=== PATIENT | male | born 1950 | race Caucasian/White ===

== ENCOUNTER 2018-02-28 11:08 | Emergency (ER) | payer MEDICARE, BC, OTHER ==
[2018-02-28 11:39] VITALS: BP 133/73
--- NOTE | 2018-02-28 13:21 | UC ---
Dizzy HPI HPI Summary: The patient is a 58-year-old male that states that this morning when he stood up quickly he felt dizzy and weak. The dizziness lasted for minutes. Since then he has felt a little fatigued. His states that he was complaining of some abdominal pain but he denies. He has had several no nausea vomiting or diarrhea. He denies any chest pain or shortness of breath. Denies any palpitations. He does have atrial fibrillation. 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 [employer] - Onset/Duration: Sudden Onset, Lasting Minutes Severity Initially: Mild Severity Currently: None Pain Intensity: 0 Pain Scale Used: 0-10 Numeric Character: Lightheaded Aggravating Factor(s): Position Change Alleviating Factor(s): Other - spontaneusly resolved - Allergies/Home Medications Allergies/Adverse Reactions: Allergies Allergy/AdvReac Type Severity Reaction Status Date / Time morphine Allergy Difficulty Verified 02/28/18 11:40 Breathing Sulfa (Sulfonamide Allergy Hives Verified 02/28/18 11:40 Antibiotics) PMH/Surg Hx/FS Hx/Imm Hx Previously Healthy: No Endocrine History: Dyslipidemia Cardiovascular History: Cardiac Disease, Hypertension, Atrial Fibrillation Neurological History: CVA - Surgical History Surgical History: Yes Surgery Procedure, Year, and Place: T & A x 2 A CHILD,CATARACT - Family History Known Family History: Positive: Hypertension - Social History Alcohol Use: None Substance Use Type: None Smoking Status (MU): Former Smoker Type: Cigarettes Amount Used/How Often: 2-3 PPD X 36 YRS Length of Time of Smoking/Using Tobacco: Quit 2003 When Did the Patient Quit Smoking/Using Tobacco: 06/30/2003 Household Exposure Type: Cigarettes - Immunization History Most Recent Influenza Vaccination: Feb 2016 Most Recent Tetanus Shot: unknown Most Recent Pneumonia Vaccination: Feb 2015 Review of Systems Constitutional: Fatigue Skin: Negative Eyes: Negative ENT: Negative Respiratory: Negative Cardiovascular: Negative Gastrointestinal: Negative Genitourinary: Negative Motor: Negative Neurovascular: Negative Musculoskeletal: Negative Neurological: Negative Psychological: Negative Is Patient Immunocompromised?: No All Other Systems Reviewed And Are Negative: Yes Physical Exam Triage Information Reviewed: Yes Appearance: Well-Appearing, No Pain Distress, Well-Nourished Vital Signs: Initial Vital Signs Temp 97.8 F 02/28/18 11:34 Pulse 58 02/28/18 11:34 Resp 18 02/28/18 11:34 BP 133/73 02/28/18 11:34 Pulse Ox 97 02/28/18 11:34 Eyes: Positive: Conjunctiva Clear ENT: Positive: Hearing grossly normal. Negative: Pharyngeal erythema, Nasal congestion, Trismus, Muffled voice, Hoarse voice Neck: Positive: Supple Respiratory: Positive: Lungs clear, Normal breath sounds, No respiratory distress, No accessory muscle use Cardiovascular: Positive: No Murmur. Negative: RRR Abdomen Description: Positive: Nontender, No Organomegaly. Negative: CVA Tenderness (R), CVA Tenderness (L), Distended, Guarding, McBurney's Point Tenderness Musculoskeletal: Positive: ROM Intact, No Edema Neurological: Positive: Alert, Other: - non focal exam Psychological Exam: Normal Skin Exam: Normal Dizzy Course/Dx - Differential Dx/Diagnosis Provider Diagnoses: dizziness :transient of uncertain cause. fatigue Discharge - Sign-Out/Discharge Documenting (check all that apply): Patient Departure All imaging exams completed and their final reports reviewed: No Studies - Discharge Plan Condition: Stable Disposition: HOME Patient Education Materials: Fatigue (ED), Dizziness (ED) Referrals: Damon Mcdonnell MD [Primary Care Provider] - 3 Days Additional Instructions: blood work pending to ER for new or worsening symptoms see your MD early next week - Billing Disposition and Condition Condition: STABLE Disposition: Home
[2018-02-28 18:59] LABS: ABS Basophils 0.1 10^3/ul (0-0.2); ABS Eosinophils 0.3 10^3/ul (0-0.6); ABS Monocytes 0.9 10^3/ul (0-0.8); ABS Nucleated RBC 0 10^3/ul; Eosinophil % 4.1 % (0-6); Hematocrit 45 % (42-52); Hemoglobin 15.3 g/dl (14.0-18.0); Lymphocyte % 11.7 % (25-47); Mean Corpuscular HGB Conc 34 g/dl (31-36); Mean Corpuscular Hemoglobin 30 pg (27-31); Mean Corpuscular Volume 89 fL (80-94); Mean Platelet Volume 10.3 um3 (7.4-10.4); Nucleated Red Blood Cells % 0.1; Platelet Count 228 10^3/ul (150-450); Red Blood Count 5.11 10^6/ul (4.00-5.40); Red Cell Distribution Width 14 % (10.5-15); White Blood Count 8.2 10^3/ul (3.5-10.8)
[2018-02-28 19:16] LABS: EGFR Non-African American 68.5 (>60)
--- NOTE | 2018-03-01 09:15 | UC ---
- Progress Note Progress Note: Labs unremarkable. F/u with PCP as advised at visit. Discharge - Sign-Out/Discharge Documenting (check all that apply): Post-Discharge Follow Up All imaging exams completed and their final reports reviewed: No Studies - Discharge Plan Condition: Stable Disposition: HOME Patient Education Materials: Dizziness (ED), Fatigue (ED) Referrals: Damon Mcdonnell MD [Primary Care Provider] - 3 Days Additional Instructions: blood work pending to ER for new or worsening symptoms see your MD early next week - Billing Disposition and Condition Condition: STABLE Disposition: Home
== END 2018-02-28 13:48 | disposition home or self-care (01) ==
LOC: UCEAST 11:08
DX: R42 Dizziness and giddiness (principal); R53.83 Other fatigue; Z88.5 Allergy status to narcotic agent; Z88.2 Allergy status to sulfonamides; Z87.891 Personal history of nicotine dependence
CPT/HCPCS: 36415; 80053; 85025; 99211; G0463

== ENCOUNTER 2018-05-07 20:00 | Observation (INO) | payer MEDICARE, BC, OTHER ==
[2018-05-07 22:37] LABS: Hematocrit 48 % (42-52); Hemoglobin 15.8 g/dl (14.0-18.0); Mean Corpuscular HGB Conc 33 g/dl (31-36); Mean Corpuscular Hemoglobin 29 pg (27-31); Mean Corpuscular Volume 89 fL (80-94); Mean Platelet Volume 9.2 fL (7.4-10.4); Platelet Count 255 10^3/ul (150-450); Red Blood Count 5.37 10^6/ul (4.00-5.40); Red Cell Distribution Width 15 % (10.5-15); White Blood Count 19.3 10^3/ul (3.5-10.8)
[2018-05-07] MEDS ORDERED: Diltiazem DRIP* 100 MG/100 ML ADDV.BAG IVPB ONE (22:48)
[2018-05-07 22:49] LABS: INR 1.75 (0.77-1.02)
[2018-05-07] MEDS ORDERED: Diltiazem IV* 5 MG/ML 5 ML VIAL (for loading dose/IV Push) (25 MG) IV SLOW PU ONE ×2 (22:53→23:04)
[2018-05-07 22:54] LABS: EGFR Non-African American 67.8 (>60)
[2018-05-07 22:57] LABS: ABS Basophils 0 10^3/ul (0-0.2); ABS Eosinophils 0.1 10^3/ul (0-0.6); ABS Lymphocytes 1.1 10^3/ul (1.0-4.8); ABS Monocytes 1.8 10^3/ul (0-0.8); ABS Neutrophils 16.3 10^3/ul (1.5-7.7); ABS Nucleated RBC 0 10^3/ul; Eosinophil % 0.3 % (0-6); Lymphocyte % 5.7 % (25-47); Nucleated Red Blood Cells % 0
[2018-05-08] MEDS ORDERED: Diltiazem IV* 5 MG/ML 5 ML VIAL (for loading dose/IV Push) (25 MG) IV SLOW PU ONE (00:06)
[2018-05-08] MEDS ORDERED: Acetaminophen TAB* 325 MG PO ONE (00:25)
[2018-05-08 00:33] LABS: Urine Appearance Clear; Urine Blood Negative (Negative); Urine Color Yellow; Urine Ketones Negative (Negative); Urine Protein 1+(30 mg/dL) (Negative); Urine Red Blood Cell Trace(0-2/hpf) (Absent); Urine Specific Gravity 1.025 (1.010-1.030); Urine Urobilinogen Positive (Negative); Urine White Blood Cell Trace(0-5/hpf) (Absent)
[2018-05-08] MEDS ORDERED: Azithromycin IV(*) 250 MG in NS 0.9% 250 ML* 250 ML IVPB ONE (01:38)
[2018-05-08] MEDS ORDERED: cefTRIAXone(*) 1 GM in NS 0.9% 50 ML* 50 ML IVPB ONE (01:39)
[2018-05-08] MEDS ORDERED: Furosemide IV* 10 MG/ML VIAL (40 MG) IV ONE (01:41)
--- NOTE | 2018-05-08 01:44 | ED ---
Adult Trauma - HPI Summary HPI Summary: Patient complains of fall while trying to move the cabinet, lying on floor for 3 hours between cabinet in bed, pain in left elbow with subsequent weakness and left upper extremity. Reports incontinence 3 while lying on the ground. History of incontinence. Patient alert and oriented, complains only of left elbow pain, 6 out of 10. Denies fever, cough, sore throat, CP, SOB, N/V/D, abdominal pain, change in urine, change in BM. Medical history is CVA, A. fib, HTN, HDL. Patient on Xarelto. - History of Current Complaint Chief Complaint: EDWeakness Stated Complaint: WEAKNESS Time Seen by Provider: 05/07/18 22:02 Hx Obtained From: Patient Mechanism of Injury: Fall Loss of Consciousness: no loss of consciousness Onset/Duration: Started Hours Ago Onset of Pain: Hours Onset Severity: Moderate Current Severity: Moderate Pain Intensity: 8 Pain Scale Used: 0-10 Numeric Location: Extremities Character: Aching Aggravating Factor(s): Movement Alleviating Factor(s): Nothing Associated Signs & Symptoms: Positive: Numbness/Weakness - Additional Pertinent History Primary Care Physician: [id number] - Allergy/Home Medications Allergies/Adverse Reactions: Allergies Allergy/AdvReac Type Severity Reaction Status Date / Time morphine Allergy Difficulty Verified 02/28/18 11:40 Breathing Sulfa (Sulfonamide Allergy Hives Verified 02/28/18 11:40 Antibiotics) PMH/Surg Hx/FS Hx/Imm Hx Endocrine/Hematology History: Denies: Hx Diabetes, Hx Sickle Cell Disease, Hx Thyroid Disease Cardiovascular History: Reports: Hx Hypertension, Other Cardiovascular Problems/ Disorders - HYPERCHOLESTEROLEMIA Denies: Hx Pacemaker/ICD Respiratory History: Denies: Hx Asthma, Hx Chronic Obstructive Pulmonary Disease (COPD), Other Respiratory Problems/Disorders GI History: Reports: Hx Gastroesophageal Reflux Disease - ON MED Denies: Hx Ulcer History: Denies: Other Problems/Disorders Musculoskeletal History: Reports: Other Musculoskeletal History - carpal tunnel syndrom Sensory History: Reports: Hx Cataracts, Hx Contacts or Glasses - GLASSES, Hx Glaucoma, Hx Hearing Aid - OUT Opthamlomology History: Reports: Hx Cataracts, Hx Contacts or Glasses - GLASSES , Hx Glaucoma Neurological History: Reports: Hx Transient Ischemic Attacks (TIA) Psychiatric History: Reports: Hx Post Traumatic Stress Disorder Denies: Hx Panic Disorder - Surgical History Surgery Procedure, Year, and Place: T & A x 2 A CHILD,CATARACT Hx Anesthesia Reactions: No Infectious Disease History: No Infectious Disease History: Reports: Hx Tuberculosis - tests positive but neg Denies: Hx Clostridium Difficile, Hx Hepatitis, Hx Human Immunodeficiency Virus (HIV), Hx of Known/Suspected MRSA, Hx Shingles, Hx Known/Suspected VRE, Hx Known/Suspected VRSA, History Other Infectious Disease, Traveled Outside the [place] in Last 30 Days - Family History Known Family History: Positive: Hypertension - Social History Alcohol Use: None Hx Substance Use: No Substance Use Type: Reports: None Hx Tobacco Use: Yes Smoking Status (MU): Former Smoker Type: Cigarettes Amount Used/How Often: 2-3 PPD X 36 YRS Length of Time of Smoking/Using Tobacco: Quit 2003 Review of Systems Constitutional: Negative Eyes: Negative ENT: Negative Cardiovascular: Negative Respiratory: Negative Gastrointestinal: Negative Genitourinary: Negative Positive: Arthralgia Skin: Negative Positive: Weakness Psychological: Normal All Other Systems Reviewed And Are Negative: Yes Physical Exam - Summary Physical Exam Summary: Neuro exam normal. No ecchymosis, erythema, deformity, swelling, extra warmth, decreased range of motion noted to left elbow. Normal clinic office coordinator strength bilaterally. Alert and oriented. Physical exam unremarkable. Triage Information Reviewed: Yes Vital Signs On Initial Exam: Initial Vitals Temp Pulse Resp BP Pulse Ox 98.6 F 64 20 153/71 94 05/07/18 20:05 05/07/18 20:05 05/07/18 20:05 05/07/18 20:05 05/07/18 20:05 Vital Signs Reviewed: Yes Appearance: Positive: Well-Appearing Skin: Positive: Warm Head/Face: Positive: Normal Head/Face Inspection Eyes: Positive: Normal Neck: Positive: Supple Respiratory/Lung Sounds: Positive: Clear to Auscultation Cardiovascular: Positive: Normal Abdomen Description: Positive: Nontender Musculoskeletal: Positive: Normal Neurological: Positive: Normal Psychiatric: Positive: Normal AVPU Assessment: Alert - Richard Coma Scale Best Eye Response: 4 - Spontaneous Best Motor Response: 6 - Obeys Commands Best Verbal Response: 5 - Oriented Coma Scale Total: 15 Diagnostics - Vital Signs Vital Signs Temp Pulse Resp BP Pulse Ox 05/08/18 01:00 100 20 96 05/08/18 00:56 98.4 F 05/08/18 00:55 99.6 F 05/08/18 00:34 105 24 94 05/08/18 00:26 94 23 137/78 94 05/08/18 00:22 100.6 F 05/08/18 00:20 95 19 145/83 95 05/08/18 00:00 32 05/07/18 23:55 100 29 141/93 97 05/07/18 23:00 108 15 95 05/07/18 22:56 103 28 121/95 95 05/07/18 22:30 99.7 F 05/07/18 22:00 103 17 95 05/07/18 21:56 116 17 98 05/07/18 21:55 111 19 151/119 95 05/07/18 20:05 98.6 F 64 20 153/71 94 - Laboratory Lab Results: Lab Results 05/07/18 05/07/18 05/07/18 Range/Units 22:25 22:25 22:25 WBC 19.3 H (3.5-10.8) 10^3/ul RBC 5.37 (4.00-5.40) 10^6/ul Hgb 15.8 (14.0-18.0) g/dl Hct 48 (42-52) % MCV 89 (80-94) fL MCH 29 (27-31) pg MCHC 33 (31-36) g/dl RDW 15 (10.5-15) % Plt Count 255 (150-450) 10^3/ul MPV 9.2 (7.4-10.4) fL Neut % (Auto) 84.5 H (38-83) % Lymph % (Auto) 5.7 L (25-47) % [place] % (Auto) 9.5 H (0-7) % Eos % (Auto) 0.3 (0-6) % Baso % (Auto) 0 (0-2) % Absolute Neuts (auto) 16.3 H (1.5-7.7) 10^3/ul Absolute Lymphs (auto) 1.1 (1.0-4.8) 10^3/ul Absolute Monos (auto) 1.8 H (0-0.8) 10^3/ul Absolute Eos (auto) 0.1 (0-0.6) 10^3/ul Absolute Basos (auto) 0 (0-0.2) 10^3/ul Absolute Nucleated RBC 0 10^3/ul Nucleated RBC % 0 INR (Anticoag Therapy) 1.75 H (0.77-1.02) Sodium 140 (135-145) mmol/L Potassium 3.6 (3.5-5.0) mmol/L Chloride 105 (101-111) mmol/L Carbon Dioxide 28 (22-32) mmol/L Anion Gap 7 (2-11) mmol/L BUN 10 (6-24) mg/dL Creatinine 1.08 (0.67-1.17) mg/dL Est GFR ( Amer) 82.0 (>60) Est GFR (Non-Af Amer) 67.8 (>60) BUN/Creatinine Ratio 9.3 (8-20) Glucose 123 H (70-100) mg/dL Lactic Acid (0.5-2.0) mmol/L Calcium 9.5 (8.6-10.3) mg/dL Total Bilirubin 1.40 H (0.2-1.0) mg/dL AST 19 (13-39) U/L ALT 14 (7-52) U/L Alkaline Phosphatase 89 (34-104) U/L CK-MB (CK-2) 5.3 (0.6-6.3) ng/mL Troponin I 0.03 (<0.04) ng/mL C-Reactive Protein 30.16 H (<8.01) mg/L Total Protein 7.2 (6.4-8.9) g/dL Albumin 4.2 (3.2-5.2) g/dL Globulin 3.0 (2-4) g/dL Albumin/Globulin Ratio 1.4 (1-3) Urine Color Urine Appearance Urine pH (5-9) Ur Specific [place] (1.010-1.030) Urine Protein (Negative) Urine Ketones (Negative) Urine Blood (Negative) Urine Nitrate (Negative) Urine Bilirubin (Negative) Urine Urobilinogen (Negative) Ur Leukocyte Esterase (Negative) Urine WBC (Auto) (Absent) Urine RBC (Auto) (Absent) Urine Bacteria (Absent) Urine Glucose (Negative) 05/07/18 05/08/18 Range/Units 22:25 00:22 WBC (3.5-10.8) 10^3/ul RBC (4.00-5.40) 10^6/ul Hgb (14.0-18.0) g/dl Hct (42-52) % MCV (80-94) fL MCH (27-31) pg MCHC (31-36) g/dl RDW (10.5-15) % Plt Count (150-450) 10^3/ul MPV (7.4-10.4) fL Neut % (Auto) (38-83) % Lymph % (Auto) (25-47) % [place] % (Auto) (0-7) % Eos % (Auto) (0-6) % Baso % (Auto) (0-2) % Absolute Neuts (auto) (1.5-7.7) 10^3/ul Absolute Lymphs (auto) (1.0-4.8) 10^3/ul Absolute Monos (auto) (0-0.8) 10^3/ul Absolute Eos (auto) (0-0.6) 10^3/ul Absolute Basos (auto) (0-0.2) 10^3/ul Absolute Nucleated RBC 10^3/ul Nucleated RBC % INR (Anticoag Therapy) (0.77-1.02) Sodium (135-145) mmol/L Potassium (3.5-5.0) mmol/L Chloride (101-111) mmol/L Carbon Dioxide (22-32) mmol/L Anion Gap (2-11) mmol/L BUN (6-24) mg/dL Creatinine (0.67-1.17) mg/dL Est GFR ( Amer) (>60) Est GFR (Non-Af Amer) (>60) BUN/Creatinine Ratio (8-20) Glucose (70-100) mg/dL Lactic Acid 1.3 (0.5-2.0) mmol/L Calcium (8.6-10.3) mg/dL Total Bilirubin (0.2-1.0) mg/dL AST (13-39) U/L ALT (7-52) U/L Alkaline Phosphatase (34-104) U/L CK-MB (CK-2) (0.6-6.3) ng/mL Troponin I (<0.04) ng/mL C-Reactive Protein (<8.01) mg/L Total Protein (6.4-8.9) g/dL Albumin (3.2-5.2) g/dL Globulin (2-4) g/dL Albumin/Globulin Ratio (1-3) Urine Color Yellow Urine Appearance Clear Urine pH 5.0 (5-9) Ur Specific [place] 1.025 (1.010-1.030) Urine Protein 1+(30 mg/dl) A (Negative) Urine Ketones Negative (Negative) Urine Blood Negative (Negative) Urine Nitrate Negative (Negative) Urine Bilirubin Negative (Negative) Urine Urobilinogen Positive A (Negative) Ur Leukocyte Esterase Negative (Negative) Urine WBC (Auto) Trace(0-5/hpf) (Absent) Urine RBC (Auto) Trace(0-2/hpf) (Absent) Urine Bacteria Absent (Absent) Urine Glucose Negative (Negative) Result Diagrams: 05/07/18 22:25 05/07/18 22:25 Lab Statement: Any lab studies that have been ordered have been reviewed, and results considered in the medical decision making process. Adult Trauma Course/Dx - Course Course Of Treatment: Patient complains of fall while trying to move the cabinet , lying on floor for 3 hours between cabinet in bed, pain in left elbow with subsequent weakness and left upper extremity. Reports incontinence 3 while lying on the ground. History of incontinence. Patient alert and oriented, complains only of left elbow pain, 6 out of 10. Denies fever, cough, sore throat, CP, SOB, N/V/D, abdominal pain, change in urine, change in BM. Medical history is CVA, A. fib, HTN, HDL. Patient on Xarelto. Physical exam:Neuro exam normal. No ecchymosis, erythema, deformity, swelling, extra warmth, decreased range of motion noted to left elbow. Normal clinic office coordinator strength bilaterally. Alert and oriented. Physical exam unremarkable. Fever up to 101.1. Vital signs otherwise unremarkable. WBC 19.2. Lactic normal. Patient with with history of A. fib uncontrolled rate between 110 and 130 here in the ED. Diltiazem 10 mg IV administered, patient heart rate improved from 2 range of 85-110. CT brain negative. Neuro exam normal. EKG unremarkable. Chest x-ray positive for right lower lobe pneumonia, cardiomegaly, pulmonary congestion. Echocardiogram on 06/19/2016 EF 35-40%. Patient not currently on diuretics. Rocephin and azithromycin given IV. 40 mg Lasix IV. [place] [facility] [place] Diagnoses Provider Diagnoses: Pneumonia, Pulmonary edema, Cardiomegaly Discharge - Sign-Out/Discharge Documenting (check all that apply): Patient Departure - Discharge Plan Condition: Stable Disposition: ADMITTED TO [facility] Referrals: Damon Mcdonnell MD [Primary Care Provider] - - Billing Disposition and Condition Condition: STABLE Disposition: Admitted to [facility]
[2018-05-08] MEDS ORDERED: Ondansetron INJ* 2 MG/ML VIAL IV PRN (03:11)
[2018-05-08] MEDS ORDERED: Senna TAB PO PRN (03:11)
[2018-05-08] MEDS ORDERED: Al Hydrox/Mg Hydrox/Simet LIQ* 30 ML UDC PO PRN (03:11)
[2018-05-08] MEDS ORDERED: Docusate CAP* 100 MG PO PRN (03:11)
[2018-05-08] MEDS ORDERED: Acetaminophen TAB* 325 MG PO PRN (03:11)
[2018-05-08] MEDS ORDERED: Potassium Chlor TAB* 20 MEQ TAB.ER PO ONE (03:14)
[2018-05-08] MEDS ORDERED: Magnesium Sulfate 2 GM IV* 2 GM/50 ML BAG IVPB ONE (04:54)
[2018-05-08 06:11] LABS: Hematocrit 42 % (42-52); Hemoglobin 14.5 g/dl (14.0-18.0); Mean Corpuscular HGB Conc 35 g/dl (31-36); Mean Corpuscular Hemoglobin 30 pg (27-31); Mean Corpuscular Volume 88 fL (80-94); Platelet Count 223 10^3/ul (150-450); Red Blood Count 4.78 10^6/ul (4.00-5.40); Red Cell Distribution Width 14 % (10.5-15); White Blood Count 15.9 10^3/ul (3.5-10.8)
[2018-05-08 06:12] LABS: ABS Basophils 0 10^3/ul (0-0.2); ABS Eosinophils 0.1 10^3/ul (0-0.6); ABS Lymphocytes 1.1 10^3/ul (1.0-4.8); ABS Monocytes 1.9 10^3/ul (0-0.8); ABS Neutrophils 12.8 10^3/ul (1.5-7.7); ABS Nucleated RBC 0 10^3/ul; Eosinophil % 0.5 % (0-6); Nucleated Red Blood Cells % 0
[2018-05-08 06:28] LABS: EGFR Non-African American 60.6 (>60)
--- NOTE | 2018-05-08 08:49 | HP ---
CC: Damon Mcdonnell MD HISTORY AND PHYSICAL: DATE OF ADMISSION: 05/08/18. TIME OF EVALUATION: 0300. PRIMARY CARE PHYSICIAN: Damon Mcdonnell MD. CHIEF COMPLAINT: Fall and left-sided weakness. HISTORY OF PRESENT ILLNESS: This is a 68-year-old male with a past medical history of atrial fibrill ation, on anticoagulation who states he was in his usual state of health last evening when he slipped off the bed and he got pinned between the filing cabinet and his bed and he was unable to get up. A t that time, he was complaining of left-sided leg and arm weakness, which is similar to his TIA in e past. Because of this, the family brought him to the emergency room for further evaluation. He ne eded help with ambulating and noted to be weak on the left side. No other recent falls. He denies an y numbness or tingling. Denies any weakness at this time. He denies any difficulty with speech. No confusion. He does shave a frontal headache. No blurry vision, no chest pain. He has had an upper respiratory illness with some cough and congestion. No shortness of breath. No fevers or chest zhanna n. No nausea, vomiting or diarrhea. No abdominal pain. No urinary symptoms. Otherwise, review of systems is negative. In the emergency room, the patient had labs, imaging, was given Lasix 40 mg, di ltiazem 10 mg IV, ceftriaxone, azithromycin, and Tylenol and is referred to the hospitalist service f or further evaluation. PAST MEDICAL HISTORY: 1. Atrial fibrillation on anticoagulation. 2. Hypertension. 3. Hyperlipidemia. 4. GERD. 5. History of TIA. 6. Cataracts. 7. PTSD. 8. History of BPH. MEDICATIONS: The patient is able to tell me he is on Eliquis twice a day that he has been compliant with, otherwise unknown medication list. ALLERGIES: MORPHINE and SULFA. FAMILY HISTORY: The patient is adopted. SOCIAL HISTORY: The patient lives with his . He is retired. He quit smoking in 2003. No alcoh ol or illicit drug use. His healthcare proxy is and daughter. Code status full code. REVIEW OF SYSTEMS: A 14-point of review of systems as mentioned in the HPI; otherwise negative. PHYSICAL EXAMINATION GENERAL: No acute distress, resting comfortably with his and daughter at the bedside. VITAL SIGNS: T-max is 100.6, pulse rate is 100, respiratory rate 20, oxygen saturation 96% on room a ir, blood pressure 137/78. HEENT: Head normocephalic. Pupils are equal and reactive. Oropharynx: Mucous membranes moist. NECK: Supple. No lymphadenopathy. No nuchal rigidity. RESPIRATORY: Bilateral rales with no increased work of breathing or tachypnea. CARDIAC: Rapid irregularly irregular rate and rhythm. ABDOMEN: Soft, nontender, non-distended. EXTREMITIES: No clubbing, cyanosis, or edema. +1 DPs. NEUROLOGIC: The patient does have some slight facial asymmetry with nasolabial fold diminished on th e right side. Does have some subtle weakness on his left upper and left lower extremity more pronoun trey in the lower extremity. Negative pronator drift. Alert and oriented x3. DIAGNOSTIC STUDIES/LABORATORY DATA: White count 19.3, hemoglobin 15.8, hematocrit 48, platelets 255 . INR was 1.75. Sodium 140, potassium 3.6, chloride 105, bicarb 28, BUN 10, creatinine 1.08, glucos e 123, CRP is 30, BNP is 164, troponin 0.03. Urinalysis unremarkable. Radiographic Data: Head CT no acute intracranial pathology, mucosal thickening of the ethmoid and le ft maxillary sinus. Atrial fibrillation with a rate of 32. Chest x-ray, some prominent interstitial markings, possible infiltrate on the right lower lobe. ASSESSMENT: This is a 68-year-old male with a past medical history of atrial fibrillation presents t o the emergency room after having fall and left-sided weakness. 1. Fall and left-sided weakness. Assessment: The patient's presentation is certainly concerning fo r a transient ischemic attack versus a cerebrovascular accident. He is anticoagulated. Plan: We wi ll admit him for rule out CVA/TIA. Neurologic checks. MRI in the morning, lipid panel, and we will s tart him on a statin medication. 2. Rapid atrial fibrillation. I suspect this is likely triggered by possible viral illness versus p neumonia. He also appears to have a component of congestive heart failure as well. His rate is impr nano with diltiazem bolus. Plan: We will increase his diltiazem p.o., as I do not not want to drop his blood pressure significantly with a possibility of having an acute CVA. We will continue him on his Eliquis. Replete his potassium once he passes the bedside swallow and check a magnesium and we w ill order an echocardiogram as well. The patient would benefit from cardiology consultation in the [facility] to discuss possibility of cardioversion once the stroke workup is negative. 3. Leukocytosis. Assessment: Again possibility of infiltrate versus viral illness. Recommend foll ow up on the official chest x-ray read. I did add on a procalcitonin, as well, although the utility is questionable. We will hold off on continuing further antibiotics, as he got a dose of ceftriaxone and azithromycin in the emergency room and he is covered for the next 24 hours. CHRONIC MEDICAL PROBLEMS: 1. Atrial fibrillation. Continue his diltiazem and Eliquis. Recommend med reconciliation to resume his medications accordingly. 2. Fluids, electrolytes, nutrition: NPO until he passes bedside swallow and then regular diet. 3. DVT prophylaxis: The patient scores high risk. He is anticoagulated on Eliquis. 4. Code status: Full code. PATIENT TIME: Greater than 50 minutes was spent doing the history and physical, more than half the t liz was spent in direct patient contact. [id number]/CPS #: [id number]
[2018-05-08] MEDS ORDERED: Furosemide IV* 10 MG/ML VIAL (40 MG) IV SCH (09:00)
[2018-05-08] MEDS ORDERED: Apixaban* 5 MG TAB PO SCH (09:00)
--- NOTE | 2018-05-08 09:09 | ECHO ---
Patient: LOGAN PEREZ [facility] Rec#: [id number] : 1950 Date: 05/08/2018 Age: 68y Height: 168 cm / 66.1 in Weight: 99.34 kg / 218.9 lbs Sex: M BSA: 2.08 Room#: [facility] Admit Date#: 05/08/2018 Type: Inpatient Referring: Milagros Gutiérrez Reading: Dominguez Low DO Manager Warehouse: Lilly Gomes RDCS CC: Damon Mcdonnell MD Transthoracic Echocardiogram Indication: Congestive heart failure BP: 145/102 HR: 92 Rhythm: A-Fib Findings History: TIA, HTN, HLD, former smoker, A-fib. Technical Comments: The study quality is good. Completed at 0830. Left Ventricle: The left ventricular chamber size is normal. Mild concentric left ventricular hypertrophy is observed. Mild global hypokinesis of the left ventricle is observed. The estimated ejection fraction is 40-45%. The assessment of diastolic function is non-diagnostic. Left Atrium: The left atrium is moderately dilated. Right Ventricle: The right ventricle is mildly dilated. The right ventricular global systolic function is mildly reduced. Right Atrium: The right atrium is moderately dilated. Aortic Valve: The aortic valve is trileaflet. The aortic valve leaflets are mildly thickened. There is a trace of aortic regurgitation. There is no evidence of aortic stenosis. Mitral Valve: The mitral valve leaflets are mildly thickened. There is a trace of mitral regurgitation. There is no evidence of mitral stenosis. Tricuspid Valve: The tricuspid valve leaflets are normal. There is mild tricuspid regurgitation. There is evidence of borderline pulmonary hypertension. There is no tricuspid stenosis. Pulmonic Valve: The pulmonic valve appears normal. There is a trace pulmonic regurgitation. There is no pulmonic stenosis. Pericardium: There is no significant pericardial effusion. Aorta: There is no dilatation of the ascending aorta. There is no dilatation of the aortic arch. The aortic root is normal in size. Pulmonary Artery: The main pulmonary artery is not well visualized. Venous: The inferior vena cava is dilated. There is a greater than 50% respiratory change in the inferior vena cava dimension. Conclusions The left ventricular chamber size is normal. Mild concentric left ventricular hypertrophy is observed. Mild global hypokinesis of the left ventricle is observed. The estimated ejection fraction is 40-45%. The left atrium is moderately dilated. The right ventricle is mildly dilated. The right ventricular global systolic function is mildly reduced. There is mild tricuspid regurgitation. There is evidence of borderline pulmonary hypertension. Patient in atrial fibrillation at time of examination Compared to prior limited study from 09/2016, LVEF is similar Measurements Name Value Normal Range RVIDd (AP) 2D 3.5 cm (0.9 - 2.6) RVDdMajor (2D) 4.5 cm (2.2 - 4.4) RAd ISD 4CH 6.1 cm (3.4 - 4.9) RA (A4C)W 4.9 cm (2.9 - 4.6) IVSd (2D) 1.1 cm (0.6 - 1) LVPWd (2D) 1.2 cm (0.6 - 1) LVIDd (2D) 4 cm (3.6 - 5.4) LVIDs (2D) 3.6 cm - LV FS (2D) 9 % (25 - 45) Aortic Annulus 2.1 cm (1.4 - 2.6) Ao root diameter (2D) 3.3 cm (2.1 - 3.5) Ascending Ao 3.4 cm (2.1 - 3.4) Aortic arch 2.7 cm (1.8 - 3.4) LA dimension (AP) 2D 4.4 cm (2.3 - 3.8) LAd ISD 4CH 6.5 cm (2.9 - 5.3) LA ISD 4CH W 4.8 cm (2.5 - 4.5) Name Value Normal Range LA ESV BP (A/L) index 44 ml/m2 - Name Value Normal Range MV E-wave Vmax 0.9 m/sec - MV deceleration time 151 msec - LV septal e' Vmax 0.07 m/sec - LV lateral e' Vmax 0.09 m/sec - LV E:e' septal ratio 12.86 ratio - LV E:e' lateral ratio 10 ratio - Name Value Normal Range AV Vmax 1.1 m/sec - AV VTI 21.3 cm - AV peak gradient 5 mmHg - AV mean gradient 3 mmHg - LVOT Vmax 0.7 m/sec - LVOT VTI 13.2 cm - LVOT peak gradient 2 mmHg - LVOT mean gradient 1 mmHg - ALEXY Vmax 0.5 m/sec - Name Value Normal Range TR Vmax 2.6 m/sec - TR peak gradient 27 mmHg - RAP 8 mmHg - RVSP 35 mmHg - IVC diameter 2.6 cm - Name Value Normal Range PV Vmax 1.1 m/sec - PV peak gradient 5 mmHg -
[2018-05-08] MEDS ORDERED: Diltiazem CD CAP* 180 MG PO SCH (16:30)
[2018-05-08] MEDS: Atorvastatin* 80 MG TAB PO SCH (16:48)
[2018-05-08] MEDS: Finasteride TAB* 5 MG PO SCH (16:48)
--- NOTE | 2018-05-08 16:56 | PN ---
Hospitalist Progress Note Date of Service: 05/08/18 HOSPITALIST ADDENDUM Case reviewed and d/w Danilo Chung RN. Mr Valentino is a 68yo M with PMH of Afib on AC, HTN, HLD, GERD, TIA, BPH, PTSD, who presented to ED after a fall with left sided weakness. He feels better now, denies CP, palpitations or dyspnea. Has moist cough. W/u has been negative for CVA and Neurology did not recommend any changes. Will continue Ceftriaxone and Zithromax for pneumonia. Afib is better controlled. Anticipate d/c in AM if he remains stable.
[2018-05-08] MEDS: Apixaban* 5 MG TAB PO SCH (19:46)
[2018-05-08] MEDS: Omeprazole CAP* 20 MG PO SCH (19:46)
--- NOTE | 2018-05-08 20:10 | CONS ---
CONSULTATION NOTE: DATE OF CONSULT: 05/08/18 CONSULTING PROVIDER: Dr. Wilcox. REASON FOR CONSULT: Left arm numbness. CHIEF COMPLAINT: Fall and left arm numbness. HISTORY OF PRESENT ILLNESS: Mr. Valentino is a 68-year-old man with past medical history of atrial fibrillation, on anticoagulation therapy who had an episode yesterday where he was trying to pickle sorter object off the floor and slipped off and fell. He denied any head injury. He was pinned between the filing cabinet and his bed. He was unable to get up. He was lying on the left arm. He was calling for help, but no one was around. It was not until 1-1/2 to 2 hours when his nephew saw him on the ground and pulled him up. After he was pulled up , the patient was complaining of weakness and numbness of the left arm. He felt that the left hand was completely numb. He stated that he felt that it was similar to when someone sleeps and has a sleeping hand the next morning. He has never had any similar symptoms in the past. He did have a slight headache yesterday that went away. Tylenol seems to help his headaches. He currently denied any visual disturbance, headaches, focal weakness, or paraesthesias. According to the note that was dictated from the admitting provider, the patient complained of weakness and inability to ambulate yesterday. He also denied numbness but that was not the history he provided me today. He denied any facial weakness. He denied any weakness in the left lower extremity. The patient had a CT head without contrast completed on that showed no evidence of acute intracranial abnormality. There is mucosal thickening of the ethmoid and left maxillary sinus. There are extensive white matter changes consistent with chronic small vessel ischemia. He had a transthoracic echo completed on 05/08/18 that showed left ventricular chamber is normal size. Ejection fraction is 40%-45%. The left atrium was moderately dilated. The patient is in atrial fibrillation. PFO, ASD were not evaluated. Brain MRI without contrast was completed on 05/08/18 that showed right frontal and insular encephalomalacia consistent with remote infarct. He has elevated T2 FLAIR signal in the periventricular, subcortical, and pontine white matter, nonspecific but suggests severe chronic small vessel ischemic changes. No restricted diffusion to suggest acute infarction. The EKG completed on 05/08/18 showed atrial fibrillation with rate control. PAST MEDICAL HISTORY: Atrial fibrillation, on Eliquis; hypertension; dyslipidemia; GERD; history of TIA; cataracts; posttraumatic disorder; history of BPH. MEDICATIONS: Home medications: 1. Omeprazole 20 mg p.o. b.i.d. 2. Diltiazem 180 mg p.o. daily. 3. Lisinopril 10 mg p.o. daily. 4. Finasteride 5 mg p.o. daily. 5. Atorvastatin 80 mg p.o. daily. 6. Apixaban 5 mg p.o. twice daily. ALLERGIES: MORPHINE and SULFA drugs. FAMILY HISTORY: No family history of stroke or seizures. SOCIAL HISTORY: The patient denied any tobacco or alcohol use. The patient lives with his spouse. REVIEW OF SYSTEMS: A 14-point review of systems was obtained and otherwise negative except for what was mentioned in the HPI. PHYSICAL EXAM: Vital Signs: Temperature of 98, pulse rate of 93, respiratory rate of 16, oxygen saturation of 96%, blood pressure of 130/75. General: Chronically overweight man who is disheveled in no acute distress. Head: Atraumatic, normocephalic. Eyes: Conjunctivae/corneas are clear. Neck is supple and symmetrical with no carotid bruits. Lungs: There are bibasilar crackles with some expiratory wheezing bilaterally. Irregular rhythm with normal rate. Extremities: Normal range of motion with no cyanosis. Skin: No skin lesions or lacerations. Psych: Affect is broad and normal mood. Neurological Examination: Mental Status: Awake, alert, and oriented to person, place, time, and general circumstances. Speech and language including expression , naming, repetition, and comprehension were assessed and found to be normal. Cranial Nerves: Normal confrontation bilaterally. Pupils are mid range and reactive to light. Normal consensual response. Extraocular muscles are intact. Sensation is intact on the forehead, cheeks, and jaw region. No facial droop. Facial asymmetry while smiling. He is able to hear throughout the history process. Symmetrical palatal elevation. Normal strength against resistance. Tongue is symmetrical and midline with no atrophy or fasciculation. Motor: No abnormal movements. No pronator drift. Normal bulk and tone throughout. No fasciculation. He is able to move all 4 extremities against resistance symmetrically. Reflexes: Right/left, brachioradialis 1/1; biceps 1/1, triceps 06/24, patella 06/24, ankle 0/ankle plantarflexor/flexor. Sensation is intact to light touch and pinprick throughout. Coordination: Normal [id number]. Gait and Station: Wide based gait. No ataxia. LABORATORY DATA: WBC 15.9, hemoglobin 14.5, hematocrit 42, platelet count 223, 000. Sodium 142, potassium 3.4, chloride 104, creatinine 1.19. Urinalysis negative for pyuria. ASSESSMENT/PLAN: 1. Mr. Shaan Valentino is a 68-year-old man, who has a history of atrial fibrillation, on anticoagulation with Eliquis, who presented after mechanical fall who had transient numbness isolated to the left upper extremity mostly distal to the elbow. 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 He had no facial or left lower extremity symptoms. There is a discrepancy in the history as he was admitted for left hemiparesis but the patient denied any weakness. He does have evidence of an old stroke in the right MCA vascular territory distribution but no clinical correlation at this time. I do not suspect the patient to have a stroke or transient ischemic attack. An acute stroke was not seen on the MRI. It is unlikely to be a transient ischemic attack since there is a known cause to why he could have the numbness and the lack of face or leg involvement suggests a peripheral etiology. I would not recommend any change in his anticoagulation regimen. 2. Severe white matter changes consistent with small vessel ischemic changes - the patient has a risk of developing vascular dementia in the future. I do not recommend starting aspirin while on Eliquis given the increased risk of bleeding. Continue close monitoring and preventing any episodes of severe uncontrolled hypertension which he has not had during this hospitalization. I encouraged him to frequently check his blood pressure and make sure it is within normal range at home. TIME SPENT: I spent a total of 55 minutes and greater than 50% was spent directly reviewing the medical chart, obtaining history, examining the patient, education and counseling, and discussing the treatment plan as mentioned above. Also discussed this with Dr. Wilcox. Neurology will sign off, but please note that we are available for any questions or concerns. I will defer the leukocytosis, hypokalemia to Dr. Wilcox. The patient may have an underlying infection such as an ammonia contributing to his leukocytosis and elevated C- reactive protein. [id number]/[facility] #: [id number] ANGELIKA
[2018-05-08] MEDS ORDERED: Atorvastatin* 40 MG TAB PO SCH (21:00)
[2018-05-09] MEDS ORDERED: Azithromycin IV(*) 500 MG in NS 0.9% 250 ML* 250 ML IVPB SCH (02:00)
[2018-05-09] MEDS ORDERED: cefTRIAXone(*) 1 GM in NS 0.9% 50 ML* 50 ML IVPB SCH (02:00)
[2018-05-09 06:07] LABS: ABS Basophils 0.1 10^3/ul (0-0.2); ABS Eosinophils 0.2 10^3/ul (0-0.6); ABS Lymphocytes 1.4 10^3/ul (1.0-4.8); ABS Nucleated RBC 0 10^3/ul; Eosinophil % 2.5 % (0-6); Hematocrit 42 % (42-52); Hemoglobin 14.4 g/dl (14.0-18.0); Lymphocyte % 16.4 % (25-47); Mean Corpuscular HGB Conc 34 g/dl (31-36); Mean Corpuscular Hemoglobin 30 pg (27-31); Mean Corpuscular Volume 88 fL (80-94); Mean Platelet Volume 9.2 fL (7.4-10.4); Nucleated Red Blood Cells % 0; Platelet Count 235 10^3/ul (150-450); Red Cell Distribution Width 14 % (10.5-15); White Blood Count 8.6 10^3/ul (3.5-10.8)
[2018-05-09 06:27] LABS: EGFR Non-African American 67.1 (>60)
[2018-05-09 07:31] VITALS: BP 128/76
[2018-05-09] MEDS: Omeprazole CAP* 20 MG PO SCH (08:18)
[2018-05-09] MEDS: Atorvastatin* 80 MG TAB PO SCH (08:18)
[2018-05-09] MEDS: Apixaban* 5 MG TAB PO SCH (08:19)
[2018-05-09] MEDS: Finasteride TAB* 5 MG PO SCH (08:19)
[2018-05-09] MEDS ORDERED: Diltiazem CD CAP* 240 MG PO SCH (09:00)
[2018-05-09] MEDS ORDERED: Potassium Chlor TAB* 20 MEQ TAB.ER PO SCH (09:00)
[2018-05-09] MEDS ORDERED: Lisinopril TAB* 10 MG PO SCH (09:00)
--- NOTE | 2018-05-10 19:30 | DS ---
CC: Dr. Mcdonnell * DISCHARGE SUMMARY: DATE OF ADMISSION: 05/08/18. DATE OF DISCHARGE: 05/09/18. DISCHARGE DIAGNOSES: 1. Status post fall. 2. Community-acquired pneumonia. 3. Atrial fibrillation with rapid ventricular rate. 4. 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 5. Sepsis secondary to community-acquired pneumonia, present on admission. SECONDARY DIAGNOSES: 1. Atrial fibrillation, on anticoagulation. 2. Hypertension. 3. Hyperlipidemia. 4. Gastroesophageal reflux disease. 5. History of transient ischemic attack. 6. Posttraumatic stress disorder. 7. Benign prostatic hyperplasia. MEDICATION LIST: 1. Finasteride 5 mg p.o. daily. 2. Atorvastatin 80 mg p.o. daily. 3. Omeprazole 20 mg p.o. b.i.d. 4. Apixaban 5 mg p.o. b.i.d. 5. Lisinopril 10 mg p.o. daily. 6. Cardizem CD 180 mg p.o. daily. New medications: 1. Cefuroxime 500 mg p.o. b.i.d. for 5 more days. 2. Zithromax 250 mg p.o. daily for 3 more days. 3. Potassium chloride 20 mEq p.o. daily. HOSPITAL COURSE: Mr. Valentino is a 68-year-old male with a past medical history as stated above who presented to the emergency room because he had slipped off his bed and got pinned between a cabinet and his bed and he was unable to get up. He was noted to have arm numbness and he was brought into the emergency room for further evaluation. For more details about his presentation, I refer you to his history and physical. The patient was also found to have atrial fibrillation with rapid ventricular rate. He had fever, leukocytosis and was found to have a small right basilar infiltrate, so the impression was that the patient had sepsis secondary to pneumonia. The patient had a CT of the brain without contrast that showed no acute intracranial pathology and an MRI of the brain showed right frontal and insular encephalomalacia consistent with remote infarct. Elevated T2 FLAIR signal in the periventricular, subcortical, and pontine white matter, nonspecific, suggestive of chronic small vessel ischemic change. No restricted diffusion to suggest acute infarct. Transthoracic echocardiogram showed ejection fraction of 40% to 45%, mild concentric LVH, mild global hypokinesis of the left ventricle similar to echo from September 2016. The patient was seen in consultation by Neurology (Dr. Drummond) and his impression was that the patient's left upper extremity numbness was likely secondary to a compressive neuropathy given that he was lying on the left arm for almost 2 hours after his fall. He did not think the patient had a TIA and did not recommend any change in his anticoagulation regimen. The patient's atrial fibrillation was controlled with diltiazem and blood and urine cultures were negative. He had resolution of his leukocytosis and electrolytes were repleted. He had mild elevation of his troponin that was thought to be secondary to his atrial fibrillation. The patient is medically stable for discharge today to follow up with Dr. Mcdonnell as outpatient. PHYSICAL EXAMINATION: Vital Signs: Temperature 97.9, heart rate is 91, respiratory rate is 18, oxygen saturation 95% on room air, blood pressure is 128 /76. General: The patient is a pleasant elderly gentleman, sitting up in bed, in no acute distress. CVS: Normal S1, S2. Irregularly irregular. Chest: Breath sounds present bilaterally with no added sounds. Neuro: He is alert and oriented x3. Able to move all 4 extremities. DIET: Heart-healthy diet. Avoid caffeine. ACTIVITY: As tolerated. DISPOSITION: To home. STATUS WHILE IN THE HOSPITAL: Observation. Please keep in mind this is a summarized version of this patient's hospital stay. If you need any more information, please feel free to call me at [phone] or please obtain the full medical records. TIME SPENT: Approximately 45 minutes was spent to complete this discharge. [id number]/[facility] #: [id number] ANGELIKA
== END 2018-05-09 12:58 | disposition home or self-care (01) ==
LOC: ED 20:00 → INTOOBSV 05-08 03:11 → MEDTELE 05-08 03:11
PROVIDERS: ADMIT Pediatrics; ATTEND Internal Medicine
DX: J18.9 Pneumonia, unspecified organism (principal); A40.3 Sepsis due to Streptococcus pneumoniae; I48.91 Unspecified atrial fibrillation; R20.0 Anesthesia of skin; I10 Essential (primary) hypertension; E78.5 Hyperlipidemia, unspecified; K21.9 Gastro-esophageal reflux disease without esophagitis; F43.10 Post-traumatic stress disorder, unspecified; N40.0 Benign prostatic hyperplasia without lower urinary tract symptoms; Z87.891 Personal history of nicotine dependence; I51.7 Cardiomegaly; Z91.81 History of falling
CPT/HCPCS: 36415; 70450; 70551; 71046; 80048; 80053; 80061; 81003; 81015; 82553; 83605; 83735; 83880; 84145; 84443; 84484; 85025; 85610; 86140; 87040; 87086; 90686; 93005; 93306; 99284; A9270-GY; G0378; G8978-GP-CH; G8979-GP-CH; G8980-GP-CH; J0456; J0696; J1940; J2405; J3475

== ENCOUNTER 2018-08-26 10:18 | Inpatient (IN) | payer MEDICARE, BC, OTHER ==
--- NOTE | 2018-08-26 10:57 | ED ---
Neurological HPI - HPI Summary HPI Summary: A 62 y/o male presents to [facility] with a chief complaint of weakness since the night of 08/25/18. The patient claims that he was at a gas station at night when he fell because his legs were shuffling. He reports that he has had a hard time walking and has had multiple falls. He claims that his legs have been shuffling for a while. He reports a new cough on 08/26/18 and thinks that it may be due to being around his sick grandchildren. He denies trouble urinating. At triage rated his pain as a 0/10 in severity. He reports that he feels weak in both legs, but feels pain in his left leg. Vital signs while in room HR: 114 bpm, O2 Sat: 94, BP: 156/107. - History of Current Complaint Chief Complaint: EDNeurologicalDeficit Stated Complaint: LEFT SIDED WEAKNESS Time Seen by Provider: 08/26/18 10:47 Hx Obtained From: Patient Onset/Duration: Gradual Onset, Started hours ago, Still Present Timing: Constant Onset Severity: Mild Current Severity: Mild Neurological Deficit Location: RLE, LLE Pain Intensity: 0 Pain Scale Used: 0-10 Numeric Character: Weak Aggravating: Nothing Alleviating: Nothing Associated Signs and Symptoms: Positive: Negative - dysuria. Negative: Fever - Additional Pertinent History Primary Care Physician: [id number] - Allergy/Home Medications Allergies/Adverse Reactions: Allergies Allergy/AdvReac Type Severity Reaction Status Date / Time morphine Allergy Difficulty Verified 08/26/18 10:20 Breathing Sulfa (Sulfonamide Allergy Hives Verified 08/26/18 10:20 Antibiotics) Home Medications: Home Medications Apixaban* [Eliquis*] 5 mg PO Q12HR 08/26/18 [History Confirmed 08/26/18] Omeprazole CAP (NF) [Prilosec CAP* 20 MG] 20 mg PO DAILY 08/26/18 [History Confirmed 08/26/18] PMH/Surg Hx/FS Hx/Imm Hx Endocrine/Hematology History: Denies: Hx Diabetes, Hx Sickle Cell Disease, Hx Thyroid Disease Cardiovascular History: Reports: Hx Hypertension, Other Cardiovascular Problems/ Disorders - HYPERCHOLESTEROLEMIA Denies: Hx Pacemaker/ICD Respiratory History: Denies: Hx Asthma, Hx Chronic Obstructive Pulmonary Disease (COPD), Other Respiratory Problems/Disorders GI History: Reports: Hx Gastroesophageal Reflux Disease - ON MED Denies: Hx Ulcer History: Denies: Other Problems/Disorders Musculoskeletal History: Reports: Hx Back Problems, Other Musculoskeletal History - carpal tunnel syndrom Sensory History: Reports: Hx Cataracts, Hx Contacts or Glasses, Hx Glaucoma Denies: Hx Hearing Aid Opthamlomology History: Reports: Hx Cataracts, Hx Contacts or Glasses, Hx Glaucoma Neurological History: Reports: Hx Transient Ischemic Attacks (TIA) Psychiatric History: Reports: Hx Post Traumatic Stress Disorder Denies: Hx Panic Disorder - Surgical History Surgery Procedure, Year, and Place: T & A x 2 A CHILD,CATARACT Hx Anesthesia Reactions: No Infectious Disease History: No Infectious Disease History: Reports: Hx Tuberculosis - tests positive but neg Denies: Hx Clostridium Difficile, Hx Hepatitis, Hx Human Immunodeficiency Virus (HIV), Hx of Known/Suspected MRSA, Hx Shingles, Hx Known/Suspected VRE, Hx Known/Suspected VRSA, History Other Infectious Disease, Traveled Outside the [place] in Last 30 Days - Family History Known Family History: Positive: Hypertension - Social History Alcohol Use: Rare Hx Substance Use: No Substance Use Type: Reports: None Hx Tobacco Use: Yes Smoking Status (MU): Former Smoker Type: Cigarettes Amount Used/How Often: 2-3 PPD X 36 YRS Length of Time of Smoking/Using Tobacco: Quit 2003 Review of Systems Negative: Fever Positive: Cough Negative: dysuria, hematuria Positive: Weakness All Other Systems Reviewed And Are Negative: Yes Physical Exam - Summary Physical Exam Summary: Appearance: The patient is well-nourished in no acute distress and in no acute pain. Skin: The skin is warm and dry and skin color reflects adequate perfusion. HEENT: The head is normocephalic and atraumatic. The pupils are equal and reactive. The conjunctivae are clear and without drainage. Nares are patent and without drainage. Mouth reveals moist mucous membranes and the throat is without erythema and exudate. The external ears are intact. The ear canals are patent and without drainage. The tympanic membranes are intact. Neck: The neck is supple with full range of motion and non-tender. There are no carotid bruits. There is no neck vein distension. Respiratory: Chest is non-tender. Expiratory wheezes, right side worse than left. Cardiovascular: Heart is tachycardic. There is no murmur or rub auscultated. There is no peripheral edema and pulses are symmetrical and equal. Abdomen: The abdomen is soft and non-tender. There are normal bowel sounds heard in all four quadrants and there is no organomegaly palpated. Musculoskeletal: There is no back tenderness noted. Extremities are non-tender with full range of motion. There is good capillary refill. There is no peripheral edema or calf tenderness elicited. Neurological: Patient is alert and oriented to person, place and time. Weak bilateral lower extremities. A little trouble following commands. Psychiatric: The patient has an appropriate affect and does not exhibit any anxiety or depression. Triage Information Reviewed: Yes Vital Signs On Initial Exam: Initial Vitals Temp Pulse Resp BP Pulse Ox 98.0 F 104 20 160/117 92 08/26/18 10:20 08/26/18 10:20 08/26/18 10:20 08/26/18 10:20 08/26/18 10:20 Vital Signs Reviewed: Yes - Richard Coma Scale Best Eye Response: 4 - Spontaneous Best Motor Response: 6 - Obeys Commands Best Verbal Response: 5 - Oriented Coma Scale Total: 15 Diagnostics - Vital Signs Vital Signs Temp Pulse Resp BP Pulse Ox 08/26/18 10:55 103 18 95 08/26/18 10:20 98.0 F 104 20 160/117 92 - Laboratory Result Diagrams: 08/26/18 11:06 08/26/18 11:06 Lab Statement: Any lab studies that have been ordered have been reviewed, and results considered in the medical decision making process. - Radiology CXR Radiology Interpretation Completed By: Radiologist Summary of Radiographic Findings: CARDIOMEGALY. NO DEFINITE PNEUMONIA IS IDENTIFIED. ED physician has reviewed this imaging report. - CT Brain CT Interpretation Completed By: Radiologist Summary of CT Findings: Old RIGHT frontal lobe infarct. Stigmata of extensive chronic small vessel ischemic. disease. No acute abnormality of the brain evident. Mucosal thickening and fluid level at the partially visualized LEFT maxillary sinus. similar to the prior exam. Acute on chronic sinusitis not excluded. ED physician has reviewed this imaging report. - EKG 11:23 Cardiac Rate: Other Rate - Atrial Fibrillation at 106 bpm EKG Rhythm: Atrial Fibrillation Summary of EKG Findings: Atrial fibrillation at 106 bpm with RVR. Re-Evaluation - Re-Evaluation First Eval Re-Evaluation Time: 15:04 Change: Unchanged Comment: Discussed results and plan with patient Course/Dx - Course Course Of Treatment: Mr. Valentino is a very vague historian. He also responds variably to the physical exam which seems to be a cooperative issue but makes it difficult to assess his PE. He's had difficulty walking for some indeterminate amount of time which she describes as shuffling. He also has had difficulty for a long time because of pain in his knees. Some time yesterday although he is equivocal as is his about the exact time, he noticed left- sided weakness. At some times subsequent to that he became unable to walk. He does state that both of his legs are too weak to walk. He describes a remote history of heavy drinking but his son-in-law is under the impression he is still drinking. His exam was difficult to assess as a above. When I first evaluated him he could not lift either leg off the bed at all but at least one time was able to hold each leg off the bed for the first required 5 seconds. His reflexes seem to be normal to me and his lower extremities. Laboratory work is generally unremarkable as is a chest x-ray and CT of his brain. I'm not sure of the etiology but he is unable to get out of bed and ambulate here. I asked the hospitalist service to evaluate him and also briefly consult with . - Diagnoses Provider Diagnoses: Weakness - Physician Notifications Discussed Care Of Patient With: Maxi Lind Time Discussed With Above Provider: 15:19 Instructed by Provider To: Admit As Inpatient Discharge - Sign-Out/Discharge Documenting (check all that apply): Patient Departure - admit Patient Received Moderate/Deep Sedation with Procedure: No - Discharge Plan Condition: Fair Disposition: HOME Referrals: Damon Mcdonnell MD [Primary Care Provider] - - Billing Disposition and Condition Condition: FAIR Disposition: Home - Attestation Statements Document Initiated by Mira: Yes Documenting Scribe: Faustino Camacho Provider For Whom Mira is Documenting (Include Credential): Lucio Goodman MD Scribe Attestation: IFaustino, scribed for Lucio Goodman MD on 08/26/18 at 1654. Scribe Documentation Reviewed: Yes Provider Attestation: The documentation as recorded by the Faustino ferrell accurately reflects the service I personally performed and the decisions made by me, Lucio Goodman MD Status of Scribe Document: Viewed
[2018-08-26 11:24] LABS: ABS Basophils 0.1 10^3/ul (0-0.2); ABS Eosinophils 0 10^3/ul (0-0.6); ABS Lymphocytes 0.7 10^3/ul (1.0-4.8); ABS Monocytes 1.4 10^3/ul (0-0.8); ABS Nucleated RBC 0 10^3/ul; Eosinophil % 0.4 %; Hematocrit 46 % (42-52); Hemoglobin 15.4 g/dl (14.0-18.0); Lymphocyte % 8.3 %; Mean Corpuscular HGB Conc 34 g/dl (31-36); Mean Corpuscular Hemoglobin 29 pg (27-31); Mean Corpuscular Volume 87 fL (80-94); Mean Platelet Volume 8.8 fL (7.4-10.4); Nucleated Red Blood Cells % 0.1; Platelet Count 246 10^3/ul (150-450); Red Blood Count 5.25 10^6/ul (4.00-5.40); Red Cell Distribution Width 15 % (10.5-15); White Blood Count 8.1 10^3/ul (3.5-10.8)
[2018-08-26] MEDS ORDERED: NS 0.9% 1000 ML** 1,000 ML IV ONE (11:29)
[2018-08-26 11:30] LABS: INR 1.34 (0.77-1.02)
[2018-08-26 11:42] LABS: Troponin I 0.03 ng/mL (<0.04)
[2018-08-26 11:45] LABS: ALT 18 U/L (7-52); AST 25 U/L (13-39); Albumin 3.9 g/dL (3.2-5.2); Albumin/Globulin Ratio 1.3 (1-3); Alkaline Phosphatase 76 U/L (34-104); Anion Gap 8 mmol/L (2-11); Blood Urea Nitrogen 15 mg/dL (6-24); C Reactive Protein 21.92 mg/L (<8.01); CO2 Carbon Dioxide 28 mmol/L (22-32); Calcium 9.1 mg/dL (8.6-10.3); Chloride 103 mmol/L (101-111); EGFR African American 76.3 (>60); EGFR Non-African American 63.1 (>60); Globulin 3.1 g/dL (2-4); Glucose 117 mg/dL (70-100); Magnesium 2.1 mg/dL (1.9-2.7); Potassium 3.5 mmol/L (3.5-5.0); Sodium 139 mmol/L (135-145)
[2018-08-26 11:58] LABS: Alcohol < 10 mg/dL (<10)
[2018-08-26 12:13] LABS: TSH (Thyroid Stimulating Horm) 0.55 mcIU/mL (0.34-5.60)
[2018-08-26] MEDS ORDERED: Thiamine IV* 100 MG, Folic Acid IV* 1 MG, Multiple Vitamin IV ADULT* 10 ML in NS 0.9% 1... IV ONE (12:35)
[2018-08-26] MEDS ORDERED: Magnesium Sulfate 1 GM IV* 1 GM/100 ML BAG IV ONE (12:35)
[2018-08-26] MEDS ORDERED: Thiamine TAB* 100 MG TAB PO ONE (13:00)
[2018-08-26] MEDS ORDERED: Folic Acid IV* 1 MG, Multiple Vitamin IV ADULT* 10 ML in NS 0.9% 1000 ML** 1,000 ML IV ONE ×4 (13:00)
[2018-08-26 14:57] LABS: Urine Appearance Clear; Urine Bacteria Absent (Absent); Urine Bilirubin Negative (Negative); Urine Blood 1+ (Negative); Urine Color Yellow; Urine Glucose Negative (Negative); Urine Ketones 1+ (Negative); Urine Nitrite Negative (Negative); Urine Protein 1+(30 mg/dL) (Negative); Urine Red Blood Cell Trace(0-2/hpf) (Absent); Urine Specific Gravity 1.019 (1.010-1.030); Urine Urobilinogen Negative (Negative); Urine White Blood Cell Trace(0-5/hpf) (Absent)
--- NOTE | 2018-08-26 18:43 | HP ---
HISTORY AND PHYSICAL: DATE OF ADMISSION: 08/26/18 PRIMARY CARE PROVIDER: Dr. Damon Mcdonnell. ADMITTING PHYSICIAN: Dr. Maxi Lind. CHIEF COMPLAINT: Two falls in the last 16 hours, inability to ambulate, generalized weakness. HISTORY OF PRESENT ILLNESS: Shaan Valentino is a 68-year-old male with past medical history of hypertension; CVA; hyperlipidemia; atrial fibrillation, on Eliquis and diltiazem; PTSD; BPH. He was in his normal state of health, which notably is quite sedentary though can walk, and denies recent falls until night prior to admission when around 11 p.m. at a gas station he tripped and fell. He says that he has pain from osteoarthritis in his knees, which has been chronic and progressive and at his left leg juts out to the side somewhat. He eventually got home past 1 a.m. 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 However he found himself too weak to get up. His Taisha, heard a thud and was unable to get to the other side of the door as the patient was initially right up against the door. In the attempt to get up he had put his head through some sheetrock near the [address] [employer] [facility] area where he was working. He was not get able to get up by himself (or with Amberly) over the next 5 to 6 hours - only after his son-in-law came to help him up. Son-in-law then transported him to the emergency room for further evaluation. He denies any head trauma in the gas station fall. He denies any chest pain, shortness of breath, nausea, vomiting, fevers, chills. He does have a cough for the last few days. His workup in the ED is unremarkable except for generalized weakness and inability to ambulate. He had a CT head, which showed old right frontal infarction and chronic small-vessel ischemic changes, no acute process. He had a chest x-ray, which showed no definitive pneumonia. He was in atrial fibrillation with heart rates in the 100s. No leukocytosis. CRP was mildly elevated at 21. He had 1+ ketones, 1+ blood, 1+ protein. He was afebrile. He tried to plead that he could and would go home. He was given every opportunity to try to ambulate or even get out of bed and he was unable to do so. His frail and elderly can obviously not support him. He may resist going to any physical therapy rehabilitation center, but we are left with no choice but to admit him under the present circumstances for inability to ambulate, generalized weakness, and need for higher level of care. PAST MEDICAL HISTORY: Hypertension; CVA; hyperlipidemia; paroxysmal atrial fibrillation, on Eliquis; PTSD; BPH; erectile dysfunction. MEDICATIONS: Include (Of note, he is a poor historian and he can only confirm his Eliquis and Lipitor at this time, the rest are from computer records). 1. Omeprazole 20 mg daily. 2. Diltiazem 180 mg p.o. daily. 3. Finasteride 5 mg p.o. daily. 4. Atorvastatin 80 mg daily. 5. Eliquis 5 mg p.o. q.12. ALLERGIES: SULFA, hives; MORPHINE, difficulty breathing. FAMILY HISTORY: Unknown. He is adopted. SOCIAL HISTORY: The patient is a former smoker, quit in 2003. He smoked 1 pack a day previously from the age of 17, so 55-pack years. He quit alcohol in 1989. His medical surrogate is his , Taisha, and also secondary is Edel Funez, his daughter (who later is at bedside as well) REVIEW OF SYSTEMS: A complete 14-point review of systems negative except as per HPI. PHYSICAL EXAMINATION GENERAL APPEARANCE: Initially somewhat lethargic, but did perk up a bit with repeated questioning, but generalized fatigue. VITAL SIGNS: Temperature 98.0; pulse rate between 96 and 121; blood pressure 160/117 initially, 174/91 currently; he is satting 94% on room air. HEENT: Normocephalic, atraumatic. Pupils are equal, round, and reactive to light. Extraocular motions intact. No scleral icterus. NECK: Supple. No cervical lymphadenopathy. LUNGS: Clear to auscultation bilaterally with no wheezing, rales, or rhonchi. CARDIOVASCULAR: Irregularly irregular, tachycardic. No murmurs, rubs, or gallops. ABDOMEN: Soft, obese, nontender. No rebound. No guarding. No Hager sign. EXTREMITIES: Warm, well perfused, dry. No edema but Left leg does seem larger than right NEUROLOGIC: He is 4-/5 on the left hip flexion, 4+/5 on the right hip flexion. Dorsiflexion and plantarflexion are intact. 5/5 tower erector strength bilaterally. Cranial nerves are intact. Sensation is intact. He either does not have the arm strength or coordination to pull himself up in bed despite availability of handrail which he would not have at home. SKIN: No concern for erythema or cellulitis. He has some dry skin on his bilateral feet. DIAGNOSTIC STUDIES/LAB DATA: White count 8.1, hemoglobin 15.4, hematocrit 46, platelets 246. INR 1.34. Sodium 139, potassium 3.5, chloride 103, carbon dioxide 28, BUN 15, creatinine 1.15, glucose 117, magnesium 2.1. Total bili 0.6 , AST 25, ALT 18, alk phos 76. Troponin 0.03. CRP 21.9. Albumin 3.9. TSH 0.55. Urinalysis: 1+ blood, 1+ ketones, 1+ protein. Serum alcohol less than 10. EKG showed atrial fibrillation, left axis deviation. No ischemic changes. Heart rate 106, QTc 448. Imaging: As above, chest x-ray with no definitive pneumonia. CT head with old right frontal infarction and chronic small-vessel ischemic changes. No acute process. Cannot exclude acute on chronic sinusitis. ASSESSMENT AND PLAN: Shaan Valentino is a 68-year-old male with past medical history of hypertension; right frontal cerebrovascular accident; hyperlipidemia ; atrial fibrillation, on Eliquis; posttraumatic stress disorder, presenting with two falls in the last 16 hours and inability to ambulate. His workup has been otherwise unremarkable, but clearly he cannot get up out of the emergency room bed. He is going to need aggressive physical therapy and occupational therapy. He is a little hypertensive and tachycardic here. He is unclear what his cardiac meds are. I am going to give him the listed diltiazem 180 mg right now. Continue on telemetry services. Continue his Eliquis for the atrial fibrillation. I do not have any specific concern for focal neurological deficits but given grave concern by the daughter who has just arrived I will get a Lumbar Spine MRI (they also attest to chronic low back pains). He has pretty sedentary lifestyle. He is on Eliquis, so he should be low risk for DVT but his left leg does seem larger in circumference than the right leg so will get duplex US of the left. He is a full code. He can eat a heart healthy diet. He is being admitted to observation status. [id number]/[facility] #: [id number] ANGELIKA
[2018-08-26] MEDS: Apixaban* 5 MG TAB PO SCH (21:20)
[2018-08-26] MEDS: Atorvastatin* 80 MG TAB PO SCH (21:20)
[2018-08-27] MEDS: Apixaban* 5 MG TAB PO SCH ×2 (08:49→21:29)
[2018-08-27] MEDS: Diltiazem CD CAP* 180 MG PO SCH (08:57)
[2018-08-27] MEDS: Finasteride TAB* 5 MG PO SCH (08:57)
[2018-08-27] MEDS: Atorvastatin* 80 MG TAB PO SCH (08:57)
[2018-08-27] MEDS: Pantoprazole TAB * 40 MG TAB PO SCH (08:58)
--- NOTE | 2018-08-27 12:30 | PN ---
Subjective Date of Service: 08/27/18 Interval History: c/o back pain, weakness and fatigue. Denies chest pain or shortness of breath. denies abd pain n/v/d. nursing reports that the patient is very unsteady with walker and 2 assist. Family History: Unchanged from Admission Social History: Unchanged from Admission Past Medical History: Unchanged from Admission Objective Active Medications: Acetaminophen (Tylenol Tab*) 650 mg PO Q4H PRN PRN Reason: FEVER/PAIN Apixaban (Eliquis*) 5 mg PO Q12HR [facility] Last Admin: 08/27/18 08:49 Dose: 5 mg Atorvastatin Calcium (Lipitor*) 80 mg PO DAILY [facility] Last Admin: 08/27/18 08:57 Dose: 80 mg Diltiazem HCl (Cardizem Cd Cap*) 180 mg PO DAILY [facility] Last Admin: 08/27/18 08:57 Dose: 180 mg Finasteride (Proscar Tab*) 5 mg PO DAILY [facility] Last Admin: 08/27/18 08:57 Dose: 5 mg Ceftriaxone Sodium 1 gm/ (Sodium Chloride) 50 mls @ 200 mls/hr IVPB Q24H [facility] Pantoprazole Sodium (Protonix Tab*) 40 mg PO DAILY [facility] Last Admin: 08/27/18 08:58 Dose: 40 mg Vital Signs - 8 hr 08/27/18 08/27/18 08:06 12:01 Temperature 98.9 F 99.5 F Pulse Rate 103 78 Respiratory 20 20 Rate Blood Pressure 155/81 145/76 (mmHg) O2 Sat by Pulse 93 92 Oximetry Oxygen Devices in Use Now: None Appearance: appears fatigued, restingin bed with eyes closed Eyes: No Scleral Icterus Ears/Nose/Mouth/Throat: Clear Oropharnyx, Mucous Membranes Moist Neck: NL Appearance and Movements; NL JVP, Trachea Midline Respiratory: Symmetrical Chest Expansion and Respiratory Effort, - - expiratory wheezing bilat. Cardiovascular: NL Sounds; No Murmurs; No JVD Abdominal: NL Sounds; No Tenderness; No Distention Extremities: No Edema, No Clubbing, Cyanosis Skin: No Rash or Ulcers Neurological: Alert and Oriented x 3 Nutrition: Taking PO's Result Diagrams: 08/26/18 11:06 08/26/18 11:06 Microbiology and Other Data: Microbiology 08/26/18 14:35 Urine Culture - Preliminary Urine Escherichia Coli Assess/Plan/Problems-Billing Assessment: Mr. Valentino is a 68 y.o male with a pmhx of htn, cva,hld, afib and ptsd who presented to the ER after 2 falls and weakness at home. - Patient Problems (1) Falls Current Visit: Yes Status: Acute Comment: continues to require 2 assist with walker -PT eval -. - suspect this could be related to underlying UTI (2) UTI (urinary tract infection) Current Visit: Yes Status: Acute Comment: Urine culture with e coli - 75-100 ,000 - low grade fever today - will start ceftriaxone (3) Afib Current Visit: No Status: Acute Code(s): I48.91 - UNSPECIFIED ATRIAL FIBRILLATION SNOMED Code(s): 38071108 Comment: stable - continue home medications cardizem and eliquis (4) History of CVA (cerebrovascular accident) Current Visit: Yes Status: Acute Code(s): Z86.73 - PRSNL HX OF TIA (TIA), AND CEREB INFRC W/O RESID DEFICITS SNOMED Code(s): 522342731 Comment: - not a current issue - will continue eliquis and atrovastatin (5) Hyperlipidemia Current Visit: No Status: Acute Code(s): E78.5 - HYPERLIPIDEMIA, UNSPECIFIED SNOMED Code(s): 31473383 Comment: Continue atorvastatin. (6) Hypertension Current Visit: No Status: Acute Code(s): I10 - ESSENTIAL (PRIMARY) HYPERTENSION SNOMED Code(s): 33768204 Comment: stable - Continue home cardizem. (7) DVT prophylaxis Current Visit: No Status: Acute Code(s): IOM0090 - SNOMED Code(s): 315907246 Comment: claritza (8) Full code status Current Visit: No Status: Acute Code(s): Z78.9 - OTHER SPECIFIED HEALTH STATUS SNOMED Code(s): 357362930 Status and Disposition: may need JOSSELIN
[2018-08-27] MEDS ORDERED: Albuterol 2.5 MG/3 ML NEB.SOL* (0.083%) INH PRN (12:32)
[2018-08-27] MEDS: Acetaminophen TAB* 325 MG PO PRN ×2 (12:38→21:29)
[2018-08-27] MEDS: cefTRIAXone(*) 1 GM in NS 0.9% 50 ML* 50 ML IVPB SCH (13:00)
[2018-08-28] MEDS: Finasteride TAB* 5 MG PO SCH (08:20)
[2018-08-28] MEDS: Apixaban* 5 MG TAB PO SCH ×2 (08:20→21:17)
[2018-08-28] MEDS: Atorvastatin* 80 MG TAB PO SCH (08:20)
[2018-08-28] MEDS: Diltiazem CD CAP* 180 MG PO SCH (08:21)
[2018-08-28] MEDS: Pantoprazole TAB * 40 MG TAB PO SCH (08:21)
[2018-08-28] MEDS: Acetaminophen TAB* 325 MG PO PRN ×2 (08:21→21:27)
[2018-08-28] MEDS: cefTRIAXone(*) 1 GM in NS 0.9% 50 ML* 50 ML IVPB SCH (12:15)
--- NOTE | 2018-08-28 17:47 | PN ---
Subjective Date of Service: 08/28/18 Interval History: patient reports that he is feeling better today. Patient is more alert. oriented x 3 . Patient reports that he feels comfortable going home and feels more steady on his feet. Reviewed with patient and his that PT had recommended STR to gain strength and stability. He reports that he does not feel he requires inpatient rehab. PT reevaluated patient today and recommended walker and home PT - patient and are agreeable of recommendations Denies fever or chills , denies abd pain n/v/d. denies chest pain or shortness of breath. Family History: Unchanged from Admission Social History: Unchanged from Admission Past Medical History: Unchanged from Admission Objective Active Medications: Acetaminophen (Tylenol Tab*) 650 mg PO Q4H PRN PRN Reason: FEVER/PAIN Last Admin: 08/28/18 08:21 Dose: 650 mg Albuterol (Ventolin 2.5 Mg/3 Ml Neb.Lety*) 2.5 mg INH Q4H PRN PRN Reason: SOB/WHEEZING Last Admin: 08/27/18 22:08 Dose: 2.5 mg Apixaban (Eliquis*) 5 mg PO Q12HR [facility] Last Admin: 08/28/18 08:20 Dose: 5 mg Atorvastatin Calcium (Lipitor*) 80 mg PO DAILY [facility] Last Admin: 08/28/18 08:20 Dose: 80 mg Diltiazem HCl (Cardizem Cd Cap*) 180 mg PO DAILY [facility] Last Admin: 08/28/18 08:21 Dose: 180 mg Finasteride (Proscar Tab*) 5 mg PO DAILY [facility] Last Admin: 08/28/18 08:20 Dose: 5 mg Ceftriaxone Sodium 1 gm/ (Sodium Chloride) 50 mls @ 200 mls/hr IVPB Q24H [facility] Last Admin: 08/28/18 12:15 Dose: 200 mls/hr Pantoprazole Sodium (Protonix Tab*) 40 mg PO DAILY [facility] Last Admin: 08/28/18 08:21 Dose: 40 mg Vital Signs - 8 hr 08/28/18 08/28/18 11:24 15:15 Temperature 97.2 F 98.4 F Pulse Rate 80 101 Respiratory 18 20 Rate Blood Pressure 101/71 132/78 (mmHg) O2 Sat by Pulse 94 93 Oximetry Oxygen Devices in Use Now: None Appearance: alert and oriented x 3 Eyes: No Scleral Icterus Ears/Nose/Mouth/Throat: Clear Oropharnyx, Mucous Membranes Moist Neck: NL Appearance and Movements; NL JVP, Trachea Midline Respiratory: Symmetrical Chest Expansion and Respiratory Effort, Clear to Auscultation Cardiovascular: NL Sounds; No Murmurs; No JVD, No Edema Abdominal: NL Sounds; No Tenderness; No Distention Extremities: No Edema, No Clubbing, Cyanosis Skin: No Rash or Ulcers Neurological: Alert and Oriented x 3, NL Muscle Strength and Tone Nutrition: Taking PO's Result Diagrams: 08/26/18 11:06 08/26/18 11:06 Microbiology and Other Data: Microbiology 08/26/18 14:35 Urine Culture - Preliminary Urine Escherichia Coli Assess/Plan/Problems-Billing Assessment: Mr. Valentino is a 68 y.o male with a pmhx of htn, cva,hld, afib and ptsd who presented to the ER after 2 falls and weakness at home. - Patient Problems (1) Falls Current Visit: Yes Status: Acute Comment: -PT eval -more alert today able to follow commands - walking with walker gait steady- was able to walk without walker as well gait was less steady. - suspect this could be related to underlying UTI (2) UTI (urinary tract infection) Current Visit: Yes Status: Acute Comment: Urine culture with e coli - 75-100 ,000 - afebrile - reports urinary frequency and urgency at home - continue ceftriaxone - 1 dose tomorrow and will complete treatment (3) Afib Current Visit: No Status: Acute Code(s): I48.91 - UNSPECIFIED ATRIAL FIBRILLATION SNOMED Code(s): 40119454 Comment: stable - continue home medications cardizem and eliquis (4) History of CVA (cerebrovascular accident) Current Visit: Yes Status: Acute Code(s): Z86.73 - PRSNL HX OF TIA (TIA), AND CEREB INFRC W/O RESID DEFICITS SNOMED Code(s): 511311788 Comment: - not a current issue - will continue eliquis and atrovastatin (5) Hyperlipidemia Current Visit: No Status: Acute Code(s): E78.5 - HYPERLIPIDEMIA, UNSPECIFIED SNOMED Code(s): 25634032 Comment: Continue atorvastatin. (6) Hypertension Current Visit: No Status: Acute Code(s): I10 - ESSENTIAL (PRIMARY) HYPERTENSION SNOMED Code(s): 59706664 Comment: stable - Continue home cardizem. (7) DVT prophylaxis Current Visit: No Status: Acute Code(s): UPI3541 - SNOMED Code(s): 267754757 Comment: claritza (8) Full code status Current Visit: No Status: Acute Code(s): Z78.9 - OTHER SPECIFIED HEALTH STATUS SNOMED Code(s): 955705032 Status and Disposition: discharge home tomorrow
[2018-08-29 08:23] VITALS: BP 149/110
[2018-08-29] MEDS: Finasteride TAB* 5 MG PO SCH (08:24)
[2018-08-29] MEDS: Apixaban* 5 MG TAB PO SCH (08:24)
[2018-08-29] MEDS: Pantoprazole TAB * 40 MG TAB PO SCH (08:24)
[2018-08-29] MEDS: Atorvastatin* 80 MG TAB PO SCH (08:24)
[2018-08-29] MEDS: Diltiazem CD CAP* 180 MG PO SCH (08:24)
[2018-08-29] MEDS ORDERED: cefTRIAXone(*) 1 GM in NS 0.9% 50 ML* 50 ML IVPB SCH (09:00)
--- NOTE | 2018-08-31 07:10 | DS ---
CC: Dr. Mcdonnell * DISCHARGE SUMMARY: DATE OF ADMISSION: 08/26/18 DATE OF DISCHARGE: 08/29/18 PROVIDER: Amira Snow NP. ATTENDING PHYSICIAN: Dr. Arlyn Ashton * (dictated by Amira Snow NP) PRIMARY CARE PROVIDER: Dr. Mcdonnell. PRIMARY DIAGNOSES: 1. Weakness. 2. Urinary tract infection. 3. Fall. SECONDARY DIAGNOSES: 1. Hypertension. 2. Cerebrovascular accident. 3. Hyperlipidemia. 4. Paroxysmal atrial fibrillation, on chronic Eliquis. 5. Posttraumatic stress disorder. 6. Benign prostatic hyperplasia. 7. Erectile dysfunction. STUDIES COMPLETED WHILE IN THE HOSPITAL: He had a CT of the brain on 08/26/18. Radiologist's impression: Old right frontal lobe infarct, Stigmata for extensive chronic small-vessel ischemic disease, no acute abnormality of the brain was evident. Mucosal thickening and fluid levels partially visualized in the left maxillary sinus similar to prior exam. [id number] sinusitis is not excluded. He had a chest x-ray on 08/26/18. Radiologist's impression: No cardiomegaly. No definite pneumonia was identified. He had an MRI of the brain on 08/26/18. No MR evidence of acute infarct, severe nonspecific T2 FLAIR hyperintensities of the periventricular and deep subcortical white matter and kenia, most likely secondary to chronic small-vessel ischemic changes, moderate mucosal thickening in the parasinuses. He had a lumbar spine MRI. No lumbar spine traumatic abnormalities. Moderate multilevel lumbar spondylopathy causing L4-L5, L5-S1 canal stenosis, likely compression of the bilateral L5-S1 nerve roots. He had a knee x-ray. No evidence of fracture of the bilateral knees. He had a venous Doppler on 08/26/18. No evidence of deep vein thrombosis. DISCHARGE MEDICATIONS: Cefdinir 300 mg p.o. b.i.d. x4 more days. Completed 7- day course of antibiotics for UTI. Continued home medications: 1. Omeprazole 20 mg p.o. daily. 2. Diltiazem 180 mg p.o. daily. 3. Proscar 5 mg p.o. daily. 4. Atorvastatin 80 mg p.o. daily. 5. Eliquis 5 mg p.o. q.12 hours. 6. Acetaminophen 650 mg p.o. q.4 hours as needed for pain. HISTORY OF PRESENT ILLNESS AND HOSPITAL COURSE: Mr. Valentino is a 68-year-old male with past medical history significant for hypertension, CVA, hyperlipidemia , atrial fibrillation, on Eliquis, PTSD, BPH who reports he has been in his normal state of health which is quite notably sedentary though he can walk. He denies any recent falls until the night prior to his admission when around 11 p.m. at the gas station he tripped and fell. The patient states he has pain from osteoarthritis in his knees, which has been chronic and progressive and his left knee juts out to the side somewhat. The patient reports that he eventually got home at 1 a.m. He states that he then decided to work on a fix- up project, which involved lying on the ground; however, he found himself too weak to get up. His , Taisha, heard a thud and was unable to get to the other side of the door as the patient was initially right up against the door. In the attempt to get up, he had put his head through some sheetrock near a [employer] closet area where he was working. He was unable to get up by himself over the next 5 to 6 hours only after son-in-law came to help him up. He was then transported to the emergency room for further evaluation. The patient denies any head injury. Due to the patient's weakness, we were asked to see and evaluate him for admission and physical therapy. The patient was seen by Physical Therapy. Initially in the hospital, was weak and fatigued and participated poorly with physical therapy. On reevaluation, the patient was able to walk around the unit with a walker and his gait was steady. He was able to follow commands and actively participate in PT. Physical Therapy has recommended the patient continue using a walker and go to outpatient physical therapy for continued gait and strength training. The patient was subsequently found to have a urinary tract infection with E. coli and was started on treatment during the hospitalization. He will continue a full course of treatment of 7 days of antibiotics. At this time, the patient is stable for discharge home. DISCHARGE PLAN: 1. UTI. I suspect that his UTI could be contributing to his symptoms of weakness and falls. He was given ceftriaxone during his hospitalization and continued on cefdinir at discharge for completion of 7 days of antibiotics. 2. Weakness. Again, I suspect his weakness is due possibly to deconditioning, bilateral arthritis of his knees as well as underlying UTI. He was seen and evaluated by Physical Therapy and recommended he use a walker at all times. The patient was given a walker at discharge. It also was recommended that he follow up with Physical Therapy as an outpatient. The patient was given a prescription for physical therapy to continue with gait and strength training. 3. Hypertension. The patient should continue on his diltiazem 180 mg p.o. daily. 4. BPH. He should continue on finasteride 5 mg p.o. daily. 5. Hyperlipidemia. He should continue on atorvastatin 80 mg p.o. daily. 6. History of CVA. The patient should continue on atorvastatin and Eliquis as previously prescribed. 7. Atrial fibrillation. The patient will continue on Eliquis and diltiazem as previously prescribed. FOLLOWUP: The patient should follow up with his primary care provider in 4 to 7 days for further evaluation of his lower back pain and bilateral knee pain. The patient should return to the emergency room for any profound weakness, weakness on one side, facial droop, slurred speech, chest pain or shortness of breath or any other concerning symptoms. This is a summarization of this hospitalization. For further details, please see the entire medical record. TIME SPENT: Time spent on this discharge was 60 minutes, greater than half that time was spent with the patient at the bedside discussing discharge plans and instructions with the patient and his . CONDITION ON DISCHARGE: Stable. DISPOSITION: Home. I have discussed this with my attending, Dr. Arlyn Ashton. She is in agreement with my plan. AMIRA SNOW, ALONZO [id number]/[facility] #: [id number] ANGELIKA
== END 2018-08-29 14:00 | disposition home or self-care (01) | DRG 690 ==
LOC: ED 10:18 → MEDTELE 16:07 → OBSVTOIN 18:00
PROVIDERS: ADMIT Internal Medicine; ATTEND Internal Medicine
DX: N39.0 Urinary tract infection, site not specified (principal); I10 Essential (primary) hypertension; E78.5 Hyperlipidemia, unspecified; F43.10 Post-traumatic stress disorder, unspecified; N40.0 Benign prostatic hyperplasia without lower urinary tract symptoms; W01.0XXA Fall on same level from slipping, tripping and stumbling without subsequent striking against object, initial encounter; R29.6 Repeated falls; M17.0 Bilateral primary osteoarthritis of knee; R40.2412 Glasgow coma scale score 13-15, at arrival to emergency department; B96.20 Unspecified Escherichia coli [E. coli] as the cause of diseases classified elsewhere; R54 Age-related physical debility; K21.9 Gastro-esophageal reflux disease without esophagitis; H40.9 Unspecified glaucoma; M48.8X6 Other specified spondylopathies, lumbar region; M48.07 Spinal stenosis, lumbosacral region; I48.0 Paroxysmal atrial fibrillation; N52.9 Male erectile dysfunction, unspecified; Z88.5 Allergy status to narcotic agent; Y92.009 Unspecified place in unspecified non-institutional (private) residence as the place of occurrence of the external cause; Z86.73 Personal history of transient ischemic attack (TIA), and cerebral infarction without residual deficits; Z88.2 Allergy status to sulfonamides; Z87.891 Personal history of nicotine dependence; Z98.42 Cataract extraction status, left eye; Z98.41 Cataract extraction status, right eye; Z86.11 Personal history of tuberculosis; Z82.49 Family history of ischemic heart disease and other diseases of the circulatory system; Z79.01 Long term (current) use of anticoagulants
CPT/HCPCS: 36415; 70450; 70551; 71045; 72148; 80053; 80320; 81003; 81015; 82140; 83605; 83735; 84443; 84484; 85025; 85610; 86140; 87077; 87086; 87186; 93005; 94640; 99284; A9270-GY; G0480; G8978-GP-CK; G8979-GP-CI; G8987-GO-CK; G8988-GO-CI; J0696; J3411; J3475

== ENCOUNTER 2019-06-14 15:21 | Inpatient (IN) | payer MEDICARE, BC, OTHER ==
[2019-06-14] MEDS ORDERED: NS 0.9% 1000 ML** 1,000 ML IV ONE ×2 (15:27→15:47)
--- NOTE | 2019-06-14 15:27 | ED ---
Altered Mental Status - HPI Summary HPI Summary: This pt is a 69 Y/O M presenting to [facility] as a Code Gregor called at 1516 after discussion with EMS due to his sudden onset of dysarthria and confusion. He was last known well at 1200 06/14/19. The pt became more and more confused while they were at a restaurant after 1200. He is currently on blood thinners and has a Hx of strokes with the last one being 2 years ago. He is currently a level 5 caveat due to his AMS. - History Of Current Complaint Chief Complaint: EDAltMentalStatus Stated Complaint: MARIUM FRIEDMAN PER EMS Time Seen by Provider: 06/14/19 15:23 Hx Obtained From: EMS Hx From Patient Unobtainable Due To: Altered Mental Status - Level 5 caveat Last Known Well Date: 06/14/19 1200 Onset/Duration: Still Present Timing: Constant Aggravating Factor(s): Unknown Related History: Other: - Hx of stroke, last one 2 years ago - Allergies/Home Medications Allergies/Adverse Reactions: Allergies Allergy/AdvReac Type Severity Reaction Status Date / Time morphine Allergy Difficulty Verified 06/14/19 15:44 Breathing Sulfa (Sulfonamide Allergy Hives Verified 06/14/19 15:44 Antibiotics) PMH/Surg Hx/FS Hx/Imm Hx Previously Healthy: No - Pt is a level 5 caveat due to his AMS and inability to communicate. Endocrine/Hematology History: Denies: Hx Diabetes, Hx Sickle Cell Disease, Hx Thyroid Disease Cardiovascular History: Reports: Hx Hypertension, Other Cardiovascular Problems/ Disorders - HYPERCHOLESTEROLEMIA Denies: Hx Pacemaker/ICD Respiratory History: Denies: Hx Asthma, Hx Chronic Obstructive Pulmonary Disease (COPD), Other Respiratory Problems/Disorders GI History: Reports: Hx Gastroesophageal Reflux Disease - ON MED Denies: Hx Ulcer History: Denies: Other Problems/Disorders Musculoskeletal History: Reports: Hx Back Problems, Other Musculoskeletal History - carpal tunnel syndrom Sensory History: Reports: Hx Cataracts, Hx Contacts or Glasses, Hx Glaucoma Denies: Hx Hearing Aid Opthamlomology History: Reports: Hx Cataracts, Hx Contacts or Glasses, Hx Glaucoma Neurological History: Reports: Hx Transient Ischemic Attacks (TIA) Psychiatric History: Reports: Hx Post Traumatic Stress Disorder Denies: Hx Panic Disorder - Cancer History Hx Chemotherapy: No Hx Radiation Therapy: No - Surgical History Surgical History: Yes Surgery Procedure, Year, and Place: T & A A CHILD; CATARACT; REMOVAL OF GROWTH ON BACK Hx Anesthesia Reactions: No - Immunization History Immunizations Up to Date: Yes Infectious Disease History: Reports: Hx Tuberculosis - tests positive but neg Denies: Hx Clostridium Difficile, Hx Hepatitis, Hx Human Immunodeficiency Virus (HIV), Hx of Known/Suspected MRSA, Hx Shingles, Hx Known/Suspected VRE, Hx Known/Suspected VRSA, History Other Infectious Disease - Family History Known Family History: Positive: Hypertension - Social History Occupation: Retired Lives: With Family Alcohol Use: None Hx Substance Use: No Substance Use Type: Reports: None Hx Tobacco Use: Yes Smoking Status (MU): Former Smoker Type: Cigarettes Amount Used/How Often: 2-3 PPD X 36 YRS Length of Time of Smoking/Using Tobacco: Quit 2003 Review of Systems - ROS Summary Review of Systems Summary: A ROS is unable to be obtained due to his AMS and inability to communicate. Neurological: Other - AMS: confused and dysarthria per EMS All Other Systems Reviewed And Are Negative: No Physical Exam Triage Information Reviewed: Yes Vital Signs On Initial Exam: Temp Pulse Resp BP SpO2 FiO2 Vital Signs Reviewed: Yes Completion Of Physical Exam Limited Due To: Altered Mental Status - Level 5 caveat due to his state of confusion and dysarthria - Richard Coma Scale Best Eye Response: 4 - Spontaneous Best Motor Response: 6 - Obeys Commands Best Verbal Response: 5 - Oriented Coma Scale Total: 15 Procedures - Sedation Patient Received Moderate/Deep Sedation with Procedure: No Diagnostics - Laboratory Result Diagrams: 06/14/19 15:37 06/14/19 15:37 Lab Statement: Any lab studies that have been ordered have been reviewed, and results considered in the medical decision making process. - Radiology CXR Radiology Interpretation Completed By: Radiologist Summary of Radiographic Findings: CARDIOMEGALY WITH PULMONARY INTERSTITIAL EDEMA. ED physician has reviewed this report. - CT CT CT Interpretation Completed By: Radiologist Summary of CT Findings: NO ACUTE INTRACRANIAL PATHOLOGY. REMOTE RIGHT FRONTAL INFARCT WITH CHRONIC SMALL VESSEL. ISCHEMIC CHANGE. ED physician has reviewed this report. Head CT CT Interpretation Completed By: Radiologist Summary of CT Findings: 1. ATHEROMATOUS DISEASE. THERE IS NONCALCIFIED, POTENTIALLY UNSTABLE PLAQUE OF THE RIGHT. CAROTID BIFURCATION. 2. THERE IS NO INTERNAL CAROTID ARTERY STENOSIS BY NASCET CRITERIA. 3. NO ANEURYSM, VASCULAR MALFORMATION, OCCLUSION, OR STENOSIS OF THE VISUALIZED. INTRACRANIAL CIRCULATION.. 4. BILATERAL PLEURAL EFFUSIONS WITH PULMONARY INTERSTITIAL EDEMA. ED physician has reveiwed this report. - EKG 1543 Cardiac Rate: NL - 98 BPM EKG Rhythm: Atrial Fibrillation Summary of EKG Findings: EKG at 1543 shows AFIB at a rate of 98 BPM with LAD and no ischemic changes. Interpreted by Dr. Grimes at 1545 06/14/19. National Institutes Of Health - NIH Scale Level of Consciousness: Only Reflex Motor/Unresponsive Ask Patient the Month and His/Her Age: Neither Correct/Aphasic Ask Pt to Open/Close Eyes and Security Escort/Release Non-Paretic Hand: Both Correctly Best Gaze (Only Horizontal Eye Movement): Normal Visual Field Testing: No Visual Loss Facial Paresis-Pt to Smile & Close Eyes or Grimace Symmetry: Normal/Symmetrical Motor Function - Right Arm: No Drift-Holds 10 Seconds Motor Function - Left Arm: No Drift-Holds 10 Seconds Motor Function - Right Leg: No Drift-Holds 10 Seconds Motor Function - Left Leg: No Drift-Holds 10 Seconds Limb Ataxia-Must be out of Proportion to Weakness Present: Absent Sensory (Use Pinprick to Test Arms/Legs/Trunk/Face): Normal Best Language (Describe Picture, Name Items): Mute/Global Aphasia Dysarthria (Read Several Words): Unintelligible or Mute Extinction and Inattention: No Abnormality Total Score: 10 Altered Mental Statu Course/Dx - Course Course Of Treatment: This pt is a 69 Y/O M presenting to [facility] as a Code Harris called at 1516 after discussion with EMS due to his sudden onset of dysarthria and confusion. He was last known well at 1200 06/14/19. The pt became more and more confused while they were at a restaurant after 1200. He is currently on blood thinners and has a Hx of strokes with the last one being 2 years ago. He is currently a level 5 caveat due to his AMS. His NIH scale is currently a 10 with the following conditions: He has an unresponsive nature, is aphasic with global aphasia, he is unable to read. He has a GCS of a 15. His PE found that he has an irregularly irregular rate and rhythm. A code harris was called at 1516 and EMS arrived to [facility] at 1523. The pt was immediately taken for a brain CT after receiving a PE and finding that he is currently a level [address] Somers, neurologist, at [facility] as a telestroke consult at 1533 TPA will not be considered due to an unknown time of last consumption of the pt's prescribed Eliquis and he recommended the pt receives a Head/Neck CTA. The brain CT found the following: NO ACUTE INTRACRANIAL PATHOLOGY. REMOTE RIGHT FRONTAL INFARCT WITH CHRONIC SMALL VESSEL ISCHEMIC CHANGE. He received an EKG at 1543 which shows AFIB at a rate of 98 BPM with LAD and no ischemic changes. He has abnormalites in his POC/Glucose levels at 131 and an INR at 1.28. His Head CT found the following results: 1. ATHEROMATOUS DISEASE. THERE IS NONCALCIFIED, POTENTIALLY UNSTABLE PLAQUE OF THE RIGHT. CAROTID BIFURCATION. 2. THERE IS NO INTERNAL CAROTID ARTERY STENOSIS BY NASCET CRITERIA. 3. NO ANEURYSM, VASCULAR MALFORMATION, OCCLUSION, OR STENOSIS OF THE VISUALIZED. INTRACRANIAL CIRCULATION.. 4. BILATERAL PLEURAL EFFUSIONS WITH PULMONARY INTERSTITIAL EDEMA. He was given the following medications during his ED course: Cardizem, ASA, Diltiazem, fluids, and Iodixanol. Dr. Ashton , Hospitalist, was contacted at 1635 for possible admission for further work up. He was admitted to [facility]. He has been Dx with a CVA. - Diagnoses Provider Diagnoses: CVA (cerebral vascular accident) - Provider Notifications Discussed Care Of Patient With: Rafa Somers Time Discussed With Above Provider: 15:33 Instructed by Provider To: Other - Consult at 1533 with telestroke with a neurologist at [facility], Dr. Somers,, recommended withholding TPA due to an unknown time of his last consumed Eliquis and recommended a CTA of the head/neck. Admit/Transition Orders Completed By ED Provider: Yes Discharge ED - Sign-Out/Discharge Documenting (check all that apply): Patient Departure - admitted - Discharge Plan Condition: Stable Disposition: ADMITTED TO [facility] Referrals: Damon Mcdonnell MD [Primary Care Provider] - - Attestation Statements Document Initiated by Scribe: Yes Documenting Scribe: Nik Almonte Provider For Whom Scribe is Documenting (Include Credential): Bhupinder Grimes MD Scribe Attestation: Nik Curran, scribed for Bhupinder Grimes MD on 06/14/19 at 1745. Status of Scribe Document: Ready
[2019-06-14] MEDS ORDERED: Alteplase* 100 MG VIAL ONE (15:28)
[2019-06-14 15:43] LABS: ABS Basophils 0.1 10^3/ul (0-0.2); ABS Eosinophils 0.3 10^3/ul (0-0.6); ABS Lymphocytes 1.1 10^3/ul (1.0-4.8); ABS Monocytes 0.9 10^3/ul (0-0.8); ABS Neutrophils 3.6 10^3/ul (1.5-7.7); Eosinophil % 4.9 %; Hematocrit 45 % (42-52); Hemoglobin 15.4 g/dL (14.0-18.0); Lymphocyte % 18.1 %; Mean Corpuscular HGB Conc 34 g/dL (31-36); Mean Corpuscular Hemoglobin 30 pg (27-31); Mean Corpuscular Volume 89 fL (80-94); Mean Platelet Volume 8.9 fL (7.4-10.4); Platelet Count 268 10^3/uL (150-450); Red Blood Count 5.09 10^6 /uL (4.18-5.48); Red Cell Distribution Width 15 % (10-15); White Blood Count 5.9 10^3/uL (3.5-10.8)
[2019-06-14 15:55] LABS: Activated Partial Thrombo Time 36.5 seconds (26.0-38.0); INR 1.28 (0.82-1.09)
[2019-06-14] MEDS ORDERED: Iodixanol* (CONTRAST) 320 MG/ML 100 ML SDV IV ONE (15:55)
[2019-06-14 16:02] LABS: Albumin 3.7 g/dL (3.2-5.2); Albumin/Globulin Ratio 1.2 (1-3); BUN/Creatinine Ratio 11.6 (8-20); Calcium 8.9 mg/dL (8.6-10.3); EGFR African American 71.7 (>60); EGFR Non-African American 59.3 (>60); Globulin 3.1 g/dL (2-4); HDL Cholesterol 36.8 mg/dL; Total Bilirubin 0.8 mg/dL (0.2-1.0); Total Protein 6.8 g/dL (6.4-8.9)
[2019-06-14 16:03] LABS: Troponin I 0.02 ng/mL (<0.03)
[2019-06-14] MEDS ORDERED: Diltiazem IV push/loading dose 5 MG/ML 5 ML vial (25 mg) IV SLOW PU ONE (16:26)
[2019-06-14] MEDS ORDERED: Diltiazem IV BAG* D5W Premix 125 MG/125 ML BAG IV ONE ×2 (16:36→23:43)
[2019-06-14] MEDS ORDERED: Aspirin TAB* 325 MG PO ONE (17:43)
[2019-06-14] MEDS ORDERED: Al Hydrox/Mg Hydrox/Simet LIQ* 30 ML UDC PO PRN (17:56)
[2019-06-14] MEDS ORDERED: Ondansetron INJ* 2 MG/ML VIAL IV PRN (17:56)
[2019-06-14] MEDS ORDERED: Senna TAB 8.6 mg* TAB PO PRN (17:56)
[2019-06-14] MEDS ORDERED: Acetaminophen TAB* 325 MG PO PRN (17:56)
[2019-06-14] MEDS ORDERED: Furosemide IV* 10 MG/ML 2 ML VIAL (20 MG) IV ONE (18:10)
[2019-06-14] MEDS ORDERED: Aspirin EC TAB* 81 MG TAB.EC ONE (18:24)
[2019-06-14] MEDS ORDERED: Aspirin EC TAB* 81 MG TAB.EC PO ONE (18:32)
[2019-06-14] MEDS ORDERED: amLODIPine TAB* 5 MG PO ONE (20:55)
[2019-06-14 21:49] LABS: Magnesium 2.1 mg/dL (1.9-2.7)
[2019-06-14] MEDS: Metoprolol Tartrate TAB* 25 MG PO SCH (22:38)
--- NOTE | 2019-06-14 23:02 | HP ---
CC: Dr. Mcdonnell* HISTORY AND PHYSICAL: DATE OF ADMISSION: 06/14/19 PROVIDER: RASHID Barnes PRIMARY CARE PROVIDER: Dr. Mcdonnell. ATTENDING PHYSICIAN WHILE IN HOSPITAL: Dr. Escobar Young* (dictated by RASHID Barnes). CHIEF COMPLAINT: Confusion, dysarthria, and aphasia. 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 The patient's notes that the patient's last known well was approximately noon today. She notes that he was starting to seem minimally confused while they were getting into the car to go to [employer] and then while they were at [employer] waiting to order, he was unable to order any food. He was unable to find words and when he was trying to speak , his speech was slurred. She asked him to point to the menu to ask what he wanted and he would not follow this direction. She was concerned and called the EMS. During my evaluation, the patient is able to follow basic commands and answering "yes or no" questions, which is apparently improved since onset of symptoms, though he is still far more dysarthric from his baseline per family and unable to find words besides "yes or no." At times he is having difficulty to say "yes or no," though. The patient denies headache, visual changes, blurring vision, dark spots, chest pain, difficulty breathing, abdominal pain. The patient has chronic lower extremity edema. Reportedly, the patient manages his own medications and per his daughter and , he has poor adherence to his medications, but also is sometimes known to take too much of the same medication one day. When the patient arrived to the emergency department, the Telestroke Team at [facility] was called and a bedside evaluation was performed. Reportedly, the patient was not a TPA candidate as he may have taken his Eliquis this morning and unable to confirm whether he has or not. The unstable plaque of his right carotid bifurcation was reviewed by Dr. Somers and no intervention is needed at this time. I did discuss this case with him personally. ED COURSE: When the patient arrived to the emergency department, he was tachycardic with heart rate in 120 beats per minute; temperature 97.8 degrees Fahrenheit; respiratory rate 28; oxygen saturation 97%; blood pressure 157/123. The patient was given 1.8 L of normal saline and this did not improve his tachycardia and lateral was given his 10 mg of diltiazem and his heart rate was 83 on the monitor during my evaluation. The patient was not given TPA. The hospitalists were then asked to evaluate the patient for admission. PAST MEDICAL HISTORY: 1. Heart failure with reduced ejection fraction on most recent echocardiogram with EF of 40% to 45%. 2. Atrial fibrillation, on Eliquis. 3. Prior CVA with left sided neglect at times and left hemiparesis as well as residual minimal dysarthria. 4. GERD. 5. Hypertension. 6. PTSD. 7. Erectile dysfunction. 8. BPH. PAST SURGICAL HISTORY: Bilateral cataract surgery. HOME MEDICATIONS: 1. Diltiazem 180 mg p.o. daily. 2. Omeprazole 20 mg p.o. daily. 3. Finasteride 5 mg p.o. daily. 4. Lipitor 80 mg p.o. daily. 5. Eliquis 5 mg p.o. b.i.d. 6. Tylenol 650 mg p.o. q.4 hours p.r.n. pain/fever. DRUG ALLERGIES: Reaction of difficulty breathing to MORPHINE and reaction of hives to SULFA. FAMILY HISTORY: His family history is unknown as he is adopted. SOCIAL HISTORY: The patient has a prior history of smoking approximately a pack per day for approximately 50 years. He quit several years ago, approximately 15 years ago. He was a reportedly heavy alcohol user, but quit in approximately 1990, according to his daughter. The patient lives with his , Taisha, and she is also his healthcare proxy. REVIEW OF SYSTEMS: An 11-point review of systems was completed and all pertinent positives and negatives are above in the HPI. All other systems are negative. PHYSICAL EXAMINATION GENERAL: Obese, elderly white male, lying in hospital bed, appearing comfortable, in no acute distress. HEENT: Head: Normocephalic, atraumatic. Eyes: No nystagmus. PERRL. Sclerae anicteric. Left visual field defect per visual sauer on confrontation. ENT: Mucous membranes moist. NECK: Supple without JVD. LUNGS: Clear to auscultation throughout. CARDIO: Irregularly irregular rhythm consistent with AFib, but with regular rate without appreciable murmurs, rubs or gallops. ABDOMEN: Soft, nontender, nondistended. EXTREMITIES: +2 pitting edema in bilateral lower extremities pretibially. SKIN: Some petechiae noted to bilateral lower extremities. NEURO: The patient has symmetric face. His speech is dysarthric. He is unable to find many words, but at times able to express "yes or no." He is unable to tell me his full name, where he is, but he is able to follow simple commands to perform a neurological exam. He has 3/5 strength in bilateral lower extremities and upper extremities. Tongue is midline. DIAGNOSTIC STUDIES/LAB DATA: White blood cell count 5.9, hemoglobin 15.4, hematocrit 45, platelet count 268. Sodium 140, potassium 4, chloride 106, carbon dioxide 28, anion gap 6, BUN 14, creatinine 1.21, glucose of 100, lactic acid 1.4, calcium 8.9. Unremarkable LFTs. BNP is 206. Brain CT: No acute intracranial pathology. Remote right frontal infarct with chronic small vessel ischemic change. Head CTA: Atheromatous disease. There is a noncalcified, potentially unstable plaque of the right carotid bifurcation. There is no internal carotid artery stenosis by NASCET criteria. No aneurysm, vascular malformation, occlusion or stenosis of the visualized intracranial circulation. Bilateral pleural effusions with pulmonary interstitial edema. Chest x-ray: Cardiomegaly with pulmonary interstitial edema. EKG: Atrial fibrillation. Irregularly irregular rate consistent with atrial fibrillation, 98 beats per minute. No T-wave inversions or ST changes. ASSESSMENT AND PLAN: Shaan Valentino is a 69-year-old male with past medical history significant for multiple prior cerebrovascular accidents with residual deficits of left-sided neglect, left-sided hemiparesis and minimal dysarthria; atrial fibrillation, on Eliquis; gastroesophageal reflux disease; and heart failure with reduced ejection fraction, who presented to the emergency department due to confusion, dysarthria, and aphasia. The patient will be admitted inpatient for: 1. Confusion, aphasia, and [id number] dysarthria. These symptoms seem to be minimally improving as far as his confusion, as he is able to follow commands at this time. It does not appear that his dysarthria or aphasia are improved. I do have the finding of left sided visual field deficit. I discussed this with Dr. Somers at [facility] Telestroke Team and he does not believe that this changes management at this time. I will be giving the patient 324 mg of aspirin and then 81 mg of aspirin daily. His bedside swallow study is pending at this time and the patient is n.p.o. for now and, if needed, per rectum aspirin will be given. Dr. Somers recommends no intervention at this time for the plaque noted on CTA and he has low concern for the instability as noted upon his review of the CTA. He recommends holding the patient's Eliquis until the MRI of the brain could be performed and reviewed. Brain MRI is pending at this time. Speech therapy consult is ordered. The patient will likely benefit from physical therapy and occupational therapy evaluation as well. Our neurology team will be evaluating the patient tomorrow and I have discussed this case with Dr. Eduardo. The patient has minimally elevated lipids, however, this is not fasting. I will order a fasting lipid panel for tomorrow as well as hemoglobin A1c for secondary management. I have ordered a TSH as well. The patient has had 2 echocardiograms in this facility, however, it does not appear a bubble study has ever been done. I did discuss this with Dr. Eduardo and he does not recommend an additional echocardiogram with bubble study at this time, as it would not twisting frame changer as the patient is already taking Eliquis at home. As previously noted, the patient is not a TPA candidate due to the likelihood that he took Eliquis this morning. 2. Acute decompensation of heart failure. The patient was given large volume of normal saline in the emergency department and I do believe this is mostly likely an iatrogenic complication of his heart failure. Though he is known to have chronic lower extremity edema. I will give 20 mg of IV Lasix at this time and we will continue to monitor his blood pressure. He does have chronic bilateral lower extremity edema. It does not appear that the patient is on any long-term management for this. He is not on RHETT inhibitor or Lasix. He would likely benefit from optimization of his heart failure during his inpatient stay. For now, I will order ARELI mota. 3. Atrial fibrillation. The patient was initially in a rapid rate, however, this has improved with diltiazem. I will continue his home oral diltiazem tomorrow and we will continue to monitor him on telemetry. Holding his Eliquis per recommendation of telestroke neurologist. 4. Posttraumatic stress disorder. The patient had a history of posttraumatic stress disorder. It does not appear he takes any medication for this. 5. Gastroesophageal reflux disease. I will continue the patient's home omeprazole. 6. Benign prostatic hypertrophy. I will continue the patient's home finasteride. 7. FEN. No further IV antibiotics at this time. The patient is n.p.o. at this time until he passes the bedside swallow evaluation by the nursing staff and after that he could have a regular unrestricted diet. However, this is pending at this time. His electrolytes are within normal limits. 8. Code status. The patient is full code. 9. DVT prophylaxis. The patient has a DVT risk score of 3. SCDs are contraindicating in the setting of his bilateral lower extremity edema and I will not be using any chemoprophylaxis at this time until the MRI has resulted. TIME SPENT: Approximately 55 minutes was spent on this admission, approximately half of this time was spent at the bedside evaluating the patient and discussing the plan of care, reviewing the history with the patient and his family. This case has been reviewed by attending, Dr. Escobar Young; he agrees with this plan of care. RASHID BARNES [id number]/[facility] #: [id number] [facility] HOSPITALDominic
[2019-06-15] MEDS ORDERED: hydrALAZINE IV* 20 MG/ML VIAL IV SLOW PU PRN (01:58)
[2019-06-15 06:40] LABS: BUN/Creatinine Ratio 9.3 (8-20); Calcium 8.9 mg/dL (8.6-10.3); EGFR African American 92.6 (>60); EGFR Non-African American 76.5 (>60); HDL Cholesterol 37.8 mg/dL; Potassium 3.5 mmol/L (3.5-5.0)
[2019-06-15 07:10] LABS: TSH (Thyroid Stimulating Horm) 0.67 mcIU/mL (0.34-5.60)
[2019-06-15] MEDS ORDERED: Aspirin 81 mg CHEW TAB* 81 MG TAB.CHEW PO SCH (09:00)
[2019-06-15] MEDS ORDERED: Diltiazem CD CAP* 180 MG PO SCH (09:00)
[2019-06-15] MEDS: Metoprolol Tartrate TAB* 25 MG PO SCH ×2 (09:33→21:26)
[2019-06-15] MEDS: Finasteride TAB* 5 MG PO SCH (09:33)
[2019-06-15] MEDS: Pantoprazole TAB * 40 MG TAB PO SCH (09:33)
[2019-06-15] MEDS: Aspirin 81 mg CHEW TAB* 81 MG TAB.CHEW PO SCH (09:34)
[2019-06-15] MEDS: Atorvastatin* 80 MG TAB PO SCH (09:34)
[2019-06-15] MEDS: Enoxaparin(*) 40 MG/0.4 ML SYR SUBCUT SCH (09:35)
[2019-06-15] MEDS ORDERED: Diltiazem TAB* 30 MG PO SCH (12:00)
--- NOTE | 2019-06-15 12:16 | ECHO ---
*[facility]* [place] [address] Fax #: [phone] Transthoracic Echocardiogram Patient: Shaan Valentino : 1950 Study Date: 06/15/2019 Age: 69 Gender: M HR: 94 bpm Height: 61 in /154.9 cm BSA: 1.98 m^2 Weight: 223.5 lb /101.6 kg BMI: 42.3 kg/m^2 *Enterprise Systems Administrator: * Lilly Gomes [facility] *Referring Physician: * Batsheva Wilhelm *Reading Physician: * Dominguez Low MD Indications: Congestive Heart Failure. CVA. History: Atrial fibrillation. Transient ischemic attack. Risk factors: Former tobacco use. Hypertension. Dyslipidemia. Conclusions Summary: - Left ventricle: The cavity size is normal. Wall thickness is at the upper limits of normal. Systolic function is moderately reduced. The estimated ejection fraction is 30%. Mild diffuse hypokinesis. - Right ventricle: The cavity size is mildly dilated. Systolic function is mildly reduced. Systolic pressure is within the normal range. - Left atrium: The atrium is moderately dilated. - Atrial septum: Negative Bubble Study. Images 44 and 45. - No significant valvular abnormalities noted. Recommendations: Compared to prior study from 04/2018, LVEF previously 40% Study data: Transthoracic echocardiogram. Procedure: Transthoracic echocardiography was performed. Image quality was fair. The study was technically limited due to Smoking history. A bubble study was performed. Complete 2D, spectral Doppler, and color flow Doppler. Location: Bedside. Patient status: Inpatient. Patient room number: 450-01. Rhythm: Atrial fibrillation. Findings Left ventricle: The cavity size is normal. Wall thickness is at the upper limits of normal. Systolic function is moderately reduced. The estimated ejection fraction is 30%. Mild diffuse hypokinesis. Left ventricular diastolic function parameters are indeterminate. Right ventricle: The cavity size is mildly dilated. Systolic function is mildly reduced. Systolic pressure is within the normal range. Left atrium: The atrium is moderately dilated. Right atrium: The atrium is mildly dilated. Atrial septum: A PFO is not demonstrated by color Doppler or agitated saline contrast. Negative Bubble Study. Images 44 and 45. Mitral valve: The Mitral valve annulus appears calcified. The leaflets are mildly thickened. There is no evidence of stenosis. There is trace to mild regurgitation. Aortic valve: The valve is trileaflet. The leaflets are mildly thickened. There is no evidence of stenosis. There is trace regurgitation. Tricuspid valve: The leaflets are normal thickness. There is no evidence of stenosis. There is trace to mild regurgitation. Pulmonic valve: The leaflets are normal thickness. There is no evidence of stenosis. There is trace regurgitation. Aorta: Aortic root: The aortic root is appears normal. Ascending aorta: The ascending aorta is appears normal. Aortic arch: The aortic arch is poorly visualized. Pericardium: A prominent pericardial fat pad is present. There is no significant pericardial effusion. Pulmonary arteries: Not well visualized. Pulmonary artery pressure may be underestimated Systemic veins: Inferior vena cava: Not well visualized. Measurements Left ventricle Value Ref Right atrium Value Ref NOÉ, LAX 5.2 cm 4.2 - 5.8 SI dim, ES (H) 5.7 cm 3.4 - 5.3 ESD, LAX (H) 4.6 cm 2.5 - 4.0 ML dim, ES, A4C (H) 4.6 cm 2.6 - 4.4 FS, LAX (L) 11 % 25 - 43 Estimated RAP 8 mm Hg --------- PW, ED, LAX (H) 1.1 cm 0.6 - 1.0 FS (L) 11 % 25 - 43 Aortic valve Value Ref PW, ED (H) 1.1 cm 0.6 - 1.0 Mariusz diam, ED 2.1 cm --------- E', lat mariusz, TDI (L) 6.1 cm/sec >=10.0 Peak v, S 0.88 m/sec ---- ----- E/e', lat mariusz, 16 VTI, S 16.4 cm ------- -- TDI Mean grad, S 2.0 mm Hg --------- E', med mariusz, TDI (L) 4.8 cm/sec >=7.0 Peak grad, S 3.0 mm Hg ---- ----- E/e', med mariusz, 21 LVOT/AV, VTI ratio 0.61 ------- -- TDI E', avg, TDI 5.5 cm/sec Mitral valve Value Ref E/e', avg, TDI (H) 18 <=14 Peak E 0.99 m/sec ---- ----- Peak A 1.07 m/sec --------- LVOT Value Ref Decel time 137 ms --------- Peak don, S 0.56 m/sec Peak grad, D 3.9 mm Hg --------- VTI, S 10.0 cm Peak E/A ratio 0.9 --------- Peak grad, S 1 mm Hg Mean grad, S 1 mm Hg Pulmonic valve Value Ref Peak v, S 0.87 m/sec --------- Ventricular septum Value Ref Peak grad, S 3.0 mm Hg --------- IVS, ED 1.0 cm 0.6 - 1.0 CT v, ED 0.99 m/sec --------- Right ventricle Value Ref Tricuspid valve Value Ref AW thickness, ED (H) 0.6 cm 0.1 - 0.5 TR peak v 2.4 m/sec <=2.8 NOÉ, LAX 2.9 cm Peak RV-RA grad, S 23 mm Hg --------- NOÉ minor ax, A4C (H) 3.6 cm 1.9 - 3.5 mid Aortic root Value Ref Pressure, S 31 mm Hg Root diam 3.4 cm <4.1 Left atrium Value Ref Ascending aorta Value Ref AP dim, ES (H) 4.30 cm 3.00 - AAo AP diam, S 3.3 cm --------- 4.00 ML dim, A4C 4.3 cm Pulmonary artery Value Ref SI dim, A4C 7.0 cm Pressure, S 28.0 mm Hg --------- Vol/bsa, ES, 1-p 36 ml/m^2 12 - 37 A4C Vol/bsa, ES, A/L (H) 47 ml/m^2 16 - 34 Legend: (L) and (H) sandra values outside specified reference range. Prepared and electronically signed by Dominguez Low MD 06/15/2019 12:15
--- NOTE | 2019-06-15 15:18 | PN ---
Subjective Date of Service: 06/15/19 Interval History: Mr. Valentino's is visiting. She is understandably frustrated that Shaan cannot communicate with her at all. He is also clearly frustrated but unable to communicate that. He is unable to tell me how he feels but does answer yes/ no and denies pain, headache, shortness of breath. Objective Active Medications: Acetaminophen (Tylenol Tab*) 650 mg PO Q4H PRN PRN Reason: MILD PAIN or TEMP > 100.4 Al Hydrox/Mg Hydrox/Simethicone (Maalox Plus*) 30 ml PO Q6H PRN PRN Reason: INDIGESTION Aspirin (Aspirin 81 Mg Chew Tab*) 81 mg PO DAILY [facility] Last Admin: 06/15/19 09:34 Dose: 81 mg Atorvastatin Calcium (Lipitor*) 80 mg PO DAILY [facility] Last Admin: 06/15/19 09:34 Dose: 80 mg Clopidogrel Bisulfate (Plavix Tab*) 75 mg PO DAILY [facility] Enoxaparin Sodium (Lovenox(*)) 40 mg SUBCUT Q24H [facility] Last Admin: 06/15/19 09:35 Dose: 40 mg Finasteride (Proscar Tab*) 5 mg PO DAILY [facility] Last Admin: 06/15/19 09:33 Dose: 5 mg Hydralazine HCl (Apresoline Iv*) 10 mg IV SLOW PU Q6H PRN PRN Reason: SBP >180 Last Admin: 06/15/19 02:05 Dose: 10 mg Diltiazem/Dextrose (Cardizem Iv D5w Bag* Premix) 125 mg in 125 mls @ 5 mls/hr IV ED ONCE ONE; Protocol Stop: 06/15/19 17:35 Last Admin: 06/14/19 22:35 Dose: 5 mls/hr Metoprolol Tartrate (Lopressor Tab*) 25 mg PO BID [facility] Last Admin: 06/15/19 09:33 Dose: 25 mg Ondansetron HCl (Zofran Inj*) 4 mg IV Q4H PRN PRN Reason: NAUSEA/VOMITING Pantoprazole Sodium (Protonix Tab*) 40 mg PO DAILY [facility] Last Admin: 06/15/19 09:33 Dose: 40 mg Senna (Senokot 8.6 Mg Tab*) 1 tab PO BID PRN PRN Reason: CONSTIPATION Vital Signs - 8 hr 06/15/19 06/15/19 06/15/19 07:28 08:00 09:27 Temperature 98.8 F Pulse Rate Respiratory 22 Rate Blood Pressure 120/106 139/91 (mmHg) O2 Sat by Pulse Oximetry 06/15/19 06/15/19 10:27 12:25 Temperature 97.4 F Pulse Rate 84 Respiratory 20 Rate Blood Pressure 113/85 124/71 (mmHg) O2 Sat by Pulse 98 Oximetry Oxygen Devices in Use Now: None Appearance: alert, no distress Eyes: No Scleral Icterus Ears/Nose/Mouth/Throat: NL Teeth, Lips, Gums Cardiovascular: - - irregular rhythm Abdominal: NL Sounds; No Tenderness; No Distention Neurological: - - unable to name pen, cup, or glasses. unable to form a sentence. unable to say his 's name, but clearly recognizes her. face is symmetric. Strength is 5/5. Result Diagrams: 06/14/19 15:37 06/15/19 06:13 Assess/Plan/Problems-Billing Assessment: - Patient Problems (1) CVA (cerebral vascular accident) Current Visit: No Status: Acute Code(s): I63.9 - CEREBRAL INFARCTION, UNSPECIFIED SNOMED Code(s): 214130547 Comment: No acute infarct on CT or CTA, but clinical picture is consistent with an MCA infarct History of afib on anticoagulation, but family reported inconsistent adherence with medications TTE showed no PFO and no thrombus (but notably worse ef) MRI is pending Neurology is following; I discussed the case with Dr. Eduardo, who recommends addition of plavix to the aspirin Continue statin Anticoagulation on hold given risk of bleed Will need speech therapy, PT, OT (2) Acute systolic (congestive) heart failure Current Visit: Yes Status: Acute Code(s): I50.21 - ACUTE SYSTOLIC ( CONGESTIVE) HEART FAILURE SNOMED Code(s): 915265283 Comment: unable to maximize medical management at this point due to HTN needed for acute CVA will consult with Dr. Low about further work up (3) Afib Current Visit: No Status: Acute Code(s): I48.91 - UNSPECIFIED ATRIAL FIBRILLATION SNOMED Code(s): 11692579 Comment: required a cardizem drip at admission for RVR; now on short-acting cardizem, but unfortunately need to stop due to need for increased BP continue metoprolol eliquis on hold given bleeding risk
--- NOTE | 2019-06-16 02:37 | PN ---
PROGRESS NOTE: DATE OF VISIT: 06/15/19 PATIENT OF: Scarlett Sandoval and Dr. Mcdonnell.* HISTORY: He was seen by the Telestroke Neurology yesterday, that dictation is not in the chart at this current time. This is a 69-year-old man who has had a past history of stroke with residual left-sided neglect and minimal dysarthria, who came in presenting with confusion and aphasia. His last known well was noon yesterday. The aphasia occurred while he was at [facility] with his , so the onset is accurate. However, since he was on Eliquis, he was not a tPA candidate. His CTA showed unstable right carotid plaque, which Dr. Somers did not think needed intervention. His past history is significant for heart failure with decreased ejection fraction, atrial fibrillation, prior stroke including left hemiparesis and left side neglect, GERD, hypertension, PTSD, erectile dysfunction, BPH. He is status post bilateral cataract surgery. MEDICATIONS: At home, include: 1. Diltiazem 180 daily. 2. Omeprazole 20 mg daily. 3. Finasteride 5 mg daily. 4. Lipitor 80 mg daily. 5. Eliquis 5 mg b.i.d. 6. Tylenol. Currently, his medications include: 1. Aspirin 81 mg a day. 2. Lipitor 80 mg a day. 3. Cardizem 30 mg a day. 4. Diltiazem drip. 5. Lovenox subcu. 6. Proscar 5 mg daily. 7. Hydralazine 10 mg p.r.n. 8. Metoprolol 25 mg b.i.d. He is unable to give a history to me. PHYSICAL EXAMINATION: Temperature 97.4, pulse 84, respirations 20. Blood pressure 124/71, it had been somewhat higher until this morning. On exam, he was alert. He could say his last name Glass, but could not say his first name. He after a while said I was a doctor. He did not know his age. He had extreme difficulty naming things; this is better than yesterday when he could sometimes yes/no. He could follow some commands, but would perseverate and he was confused about most of the commands. He had mild right facial weakness. Cranial nerves II through XII were otherwise intact other than some left-sided neglect. Strength was 5/5 as best I can tell with the lack of communication. Sensation grossly intact to light touch. Chest: Clear. Cardiovascular: Irregular rate and rhythm. Abdomen: Soft with positive bowel sounds. DIAGNOSTIC STUDIES/LAB DATA: His CT scan showed a remote right frontal infarct with chronic small vessel ischemic changes. The transthoracic echo had showed a negative bubble study. A CTA had showed atherosclerotic disease with some unstable plaque in the right carotid bifurcation. No other major abnormalities. Labs include normal CBC. INR 1.28, PTT 36.5. LDL of 124 today. Normal BNP, normal liver function tests. He is on 80 mg Lipitor daily. It is unclear whether he was compliant with it at home. ASSESSMENT AND PLAN: I agree with the game plan that he should have an MRI scan. We need to hold off on his anticoagulation for now since he has clearly had a large stroke, probably a partial left MCA stroke. He should also be on his aspirin, Plavix, as well as his Lipitor. For now, I am recommending we will be calling the hospitalist to back off his blood pressure medications at this point other than for systolics greater than 180, diastolics greater than 110. Thank you for sharing his case. [id number]/[facility] #: [id number] ANGELIKA
[2019-06-16 03:36] LABS: Urine Appearance Clear; Urine Bilirubin Negative (Negative); Urine Blood Negative (Negative); Urine Color Yellow; Urine Glucose Negative (Negative); Urine Ketones Trace (Negative); Urine Nitrite Negative (Negative); Urine Protein Negative (Negative); Urine Specific Gravity 1.012 (1.010-1.030); Urine Urobilinogen Negative (Negative)
[2019-06-16] MEDS: Atorvastatin* 80 MG TAB PO SCH (08:05)
[2019-06-16] MEDS: Metoprolol Tartrate TAB* 25 MG PO SCH ×2 (08:05→21:24)
[2019-06-16] MEDS: Finasteride TAB* 5 MG PO SCH (08:06)
[2019-06-16] MEDS: Pantoprazole TAB * 40 MG TAB PO SCH (08:06)
[2019-06-16] MEDS: Aspirin 81 mg CHEW TAB* 81 MG TAB.CHEW PO SCH (08:06)
[2019-06-16] MEDS: Clopidogrel TAB* 75 MG PO SCH (08:06)
[2019-06-16] MEDS: Enoxaparin(*) 40 MG/0.4 ML SYR SUBCUT SCH (08:07)
--- NOTE | 2019-06-16 11:38 | PN ---
Subjective Date of Service: 06/16/19 Interval History: when I came to see Mr. Valentino this morning his is at the bedside and she believes he is improving. He tells me he is "fine" when I ask how he is feeling this morning and asks appropriate questions about the plans for today. He is understandably still very frustrated . Objective Active Medications: Acetaminophen (Tylenol Tab*) 650 mg PO Q4H PRN PRN Reason: MILD PAIN or TEMP > 100.4 Al Hydrox/Mg Hydrox/Simethicone (Maalox Plus*) 30 ml PO Q6H PRN PRN Reason: INDIGESTION Aspirin (Aspirin 81 Mg Chew Tab*) 81 mg PO DAILY [facility] Last Admin: 06/16/19 08:06 Dose: 81 mg Atorvastatin Calcium (Lipitor*) 80 mg PO DAILY [facility] Last Admin: 06/16/19 08:05 Dose: 80 mg Clopidogrel Bisulfate (Plavix Tab*) 75 mg PO DAILY [facility] Last Admin: 06/16/19 08:06 Dose: 75 mg Enoxaparin Sodium (Lovenox(*)) 40 mg SUBCUT Q24H [facility] Last Admin: 06/16/19 08:07 Dose: 40 mg Finasteride (Proscar Tab*) 5 mg PO DAILY [facility] Last Admin: 06/16/19 08:06 Dose: 5 mg Hydralazine HCl (Apresoline Iv*) 10 mg IV SLOW PU Q6H PRN PRN Reason: SBP >180 Last Admin: 06/15/19 02:05 Dose: 10 mg Metoprolol Tartrate (Lopressor Tab*) 25 mg PO BID [facility] Last Admin: 06/16/19 08:05 Dose: 25 mg Ondansetron HCl (Zofran Inj*) 4 mg IV Q4H PRN PRN Reason: NAUSEA/VOMITING Pantoprazole Sodium (Protonix Tab*) 40 mg PO DAILY [facility] Last Admin: 06/16/19 08:06 Dose: 40 mg Senna (Senokot 8.6 Mg Tab*) 1 tab PO BID PRN PRN Reason: CONSTIPATION Vital Signs - 8 hr 06/16/19 06/16/19 07:16 07:49 Temperature 98.8 F Pulse Rate 96 Respiratory 22 20 Rate Blood Pressure 156/99 (mmHg) O2 Sat by Pulse 96 Oximetry Oxygen Devices in Use Now: None Appearance: alert, sitting up in the recliner Eyes: No Scleral Icterus Ears/Nose/Mouth/Throat: NL Teeth, Lips, Gums Neck: NL Appearance and Movements; NL JVP Respiratory: Symmetrical Chest Expansion and Respiratory Effort Cardiovascular: - - irregularly irregular Abdominal: NL Sounds; No Tenderness; No Distention Lymphatic: No Cervical Adenopathy Extremities: No Edema Skin: No Rash or Ulcers Neurological: - - when the remote falls, he says "put it on the bed." good comprehension, follows sipmle and complex commands, but gets discouraged quickly in trying to name objects. strength 5/5 in all extremities. no pronator drift. Result Diagrams: 06/14/19 15:37 06/15/19 06:13 Assess/Plan/Problems-Billing Assessment: This is a 69 year old man with history of afib on eliquis and multiple CVAs presented to the ED on 06/[address] [facility] where he was unable to order form the menu, and is found to have an acute CVA - Patient Problems (1) CVA (cerebral vascular accident) Current Visit: No Status: Acute Code(s): I63.9 - CEREBRAL INFARCTION, UNSPECIFIED SNOMED Code(s): 203023924 Comment: MRI confirmed acute CVA History of afib on anticoagulation, but family reported inconsistent adherence with medications TTE showed no PFO and no thrombus (but notably worse ef) Neurology is following; plavix added yesterday per Dr. Eduardo Continue statin Anticoagulation on hold given risk of bleed Will need speech therapy, PT, OT (2) Acute systolic (congestive) heart failure Current Visit: Yes Status: Acute Code(s): I50.21 - ACUTE SYSTOLIC ( CONGESTIVE) HEART FAILURE SNOMED Code(s): 716182289 Comment: unable to maximize medical management at this point due to HTN needed for acute CVA may be tachycardia-mediated, discussed with Dr. Avila. he will consult today re: timing of ischemic work up (3) Afib Current Visit: No Status: Acute Code(s): I48.91 - UNSPECIFIED ATRIAL FIBRILLATION SNOMED Code(s): 71235701 Comment: required a cardizem drip at admission for RVR; DC'ed yesterday and also did not continue short acting cardizem because BP was lower than desired for acute CVA continue metoprolol eliquis on hold given bleeding risk
[2019-06-16] MEDS: Diltiazem TAB* 30 MG PO SCH ×2 (17:27→23:54)
--- NOTE | 2019-06-16 20:27 | CONS ---
CARDIOLOGY CONSULTATION: DATE OF CONSULT: 06/16/19 CONSULTING: Batsheva Wilhelm REASON FOR EVALUATION: Cardiomyopathy. Source of the history is from Dr. Wilhelm; his admission note from 06/14/19 and the patient who is a compromised historian due to expressive aphasia. HISTORY OF PRESENT ILLNESS: Mr. Valentino has a history of reduced LV function, atrial fibrillation and developed confusion, dysarthria, and aphasia on . He came to the emergency room, was found to have the CVA. He was also tachycardic in the 120s and hypertensive at 157/123. His O2 sats were 97%. He was given a 1.8 L of fluid without improvement in his tachycardia and then he was given 10 mg of diltiazem; his heart rate was 83. He was not given TPA because of his history of Eliquis use and he did have an echocardiogram on 06/15, which revealed diffuse and moderate LV dysfunction with EF of 30%, upper limits of normal wall thicknesses, RV was mildly dilated, mildly reduced, moderate left atrial enlargement, negative bubble study, no significant valvular abnormalities. The prior study in April 2018, he had an EF of 40%. He denies any chest pain, syncope, or near syncope. No orthopnea or peripheral edema. He said normally he can walk around for 20 minutes or so without a problem. He denies any bleeding problems. He reports compliance with this medications, but there were some concerns that he had been noncompliant with his medications. PAST MEDICAL HISTORY: Includes: 1. Reduced EF with heart failure, EF of 40% to 45% in the past. 2. Atrial fibrillation, on chronic Eliquis therapy. 3. 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 4. GERD. 5. Hypertension. 6. PTSD. 7. Erectile dysfunction. 8. BPH. 9. He has a remote of history of tobacco use and alcohol use. PAST SURGICAL HISTORY: Includes bilateral cataracts. MEDICATIONS: Include: 1. Aspirin 81 mg a day. 2. Lipitor 80 mg a day. 3. Clopidogrel 75 mg a day. 4. Enoxaparin 40 mg subcu q.24. 5. Proscar 5 mg a day. 6. Hydralazine 10 mg IV q.6 p.r.n. 7. Metoprolol 25 mg b.i.d. 8. Zofran p.r.n. 9. Protonix 40 mg a day. It appears that his diltiazem has been held due to need to elevate his blood pressure. ALLERGIES: His drug allergies include difficulty breathing on MORPHINE and reaction to SULFA. FAMILY HISTORY: Unknown given he is adopted. SOCIAL HISTORY: He has a history of smoking a pack per day for 50 years; he quit approximately 15 years ago. He has a history of alcohol use that was heavy , discontinued in 1990. He lives with his , who is his healthcare proxy. 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 REVIEW OF SYSTEMS: Review of systems x10 was negative except as above. PHYSICAL EXAMINATION: On physical exam, he is a well-developed, obese gentleman , in no apparent distress. He has difficulty expressing the year, he jumbled the numbers. He could not say hospital. He was able to answer some questions. His heart rate was in the 70s, O2 sat is 97% on room air, blood pressure 145/ 118. No significant JVD. Carotids 2+ without bruits. No cervical adenopathy or thyromegaly. Atraumatic/normocephalic. Extraocular muscles intact. Cardiac Exam: S1, S2. Irregular. No clicks, murmurs, gallops, or rubs. Chest was clear. Abdomen: Obese. Bowel sounds present. Femoral pulses intact without bruits. Distal pulses intact. No edema. Motor strength 5/5 bilaterally. Difficult to assess orientation due to his expressive aphasia. DIAGNOSTIC STUDIES/LAB DATA: EKG from 06/14/19 revealed AFib with nonspecific T wave changes, heart rate in the 90s, leftward axis, possible inferior [place]. Head CTA from 06/14/19 revealed atheromatous disease, potentially unstable plaque of the right carotid bifurcation, bilateral pleural effusions with pulmonary interstitial edema. Chest x-ray from 06/14/19 revealed cardiomegaly with mild pulmonary interstitial edema. His labs include a normal CBC. Potassium from 06/15/19 at 3.5, BUN 9, creatinine of 0.97. Cholesterol 176, LDL of 124. TSH of 0.67. Troponin of 0.02 from 06/14/19. BNP of 206 from 06/14/19. IMPRESSION: My impression is that Mr. Valentino has a history of hypertension, cerebrovascular accidents, gastroesophageal reflux disease, past history of tobacco use, atrial fibrillation, now with cerebrovascular accident. He also has worsening LV function, which could be related to uncontrolled hypertension or tachycardia- induced cardiomyopathy superimposed on a baseline cardiomyopathy. For the time being, I would recommend followin. We will try to obtain prior records to see if he has had a stress test. 2. We will consider obtaining a nuclear stress test if the etiology of his cardiomyopathy remains uncertain. 3. We will recommend rate control as you are doing. 4. We will also recommend blood pressure control within the parameters allowed by Neurology given his recent cerebrovascular accident. 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 6. We would recommend aggressive lipid lowering as you are doing. We will try to get his LDL close to the 70. 7. Consider advancing his CHF medical treatment with aldosterone and entresto or RHETT inhibitor as BP's will permit 8. Consider using beta blockers and dig for rate control. He was on diltiazem as outpatient; ideally, we will minimize the use of diltiazem given his low ef and replace with beta blockers and dig as his condition allows. 9. Further recommendations will depend on his clinical course. d/w Dr. Wilhelm [id number]/[facility] #: [id number] ANGELIKA
--- NOTE | 2019-06-16 22:07 | PN ---
PROGRESS NOTE: DATE OF VISIT:06/16/19 PATIENT OF: Dr. Wilhelm. HISTORY: This is a 69-year-old man I am seeing in followup of his stroke. His speech is a little bit better than yesterday but still remains aphasic. He has no other complaints. MEDICATIONS: Include: 1. Aspirin. 2. Plavix. 3. Lipitor 80 mg daily. 4. Lovenox subcu. 5. Proscar 5 mg daily. 6. Hydralazine as needed. 7. Metoprolol 25 b.i.d. 8. Zofran p.r.n. 9. Protonix 40 mg daily. 10. Senokot 1 tab b.i.d. p.r.n. constipation. PHYSICAL EXAMINATION: On exam, temperature 97.5, pulse 77, respirations 18, blood pressure 145/118, but it has been lower than that throughout the day. He is alert and oriented but has asphasia, so he has difficulty saying his address and he is speaking in single word sentences and able to name some objects but not all. He has right facial weakness. Cranial nerves otherwise are normal. He has no clear weakness in his extremities. Strength is 5/5. Chest: Clear. Cardiovascular: Irregular rate and rhythm. Abdomen: Soft. DIAGNOSTIC STUDIES/LAB DATA: Reviewed his MRI scan, which showed acute left frontal temporal stroke and distribution of partial left MCA stroke. I discussed this with Dr. Wilhelm that he will not be able to go back on his Eliquis for at least a week following the stroke, so 07/22/19 or 07/23/19, he should have a repeat CT scan looking for hemorrhage and then follow up with Neurology for the final recommendations of when to restart the anticoagulation. For now, he should be on his aspirin and Plavix and his Lipitor. Dr. Drummond will be covering the hospital beginning tomorrow and please call me as needed. Thank you for sharing his case. [id number]/[facility] #: [id number] ANGELIKA
[2019-06-17] MEDS: Diltiazem TAB* 30 MG PO SCH (05:12)
[2019-06-17] MEDS: Clopidogrel TAB* 75 MG PO SCH (09:12)
[2019-06-17] MEDS: Aspirin 81 mg CHEW TAB* 81 MG TAB.CHEW PO SCH (09:12)
[2019-06-17] MEDS: Pantoprazole TAB * 40 MG TAB PO SCH (09:12)
[2019-06-17] MEDS: Metoprolol Tartrate TAB* 25 MG PO SCH (09:12)
[2019-06-17] MEDS: Atorvastatin* 80 MG TAB PO SCH (09:12)
[2019-06-17] MEDS: Finasteride TAB* 5 MG PO SCH (09:12)
[2019-06-17] MEDS: Enoxaparin(*) 40 MG/0.4 ML SYR SUBCUT SCH (09:13)
[2019-06-17] MEDS ORDERED: Metoprolol Tartrate TAB* 25 MG PO ONE (09:57)
--- NOTE | 2019-06-17 10:19 | PN ---
Subjective Date of Service: 06/17/19 Interval History: is at bedside, they want to go home- discussed with patient that there are few things we are working on including controlling his heart rate, cardiology is recommending a stress test, and he was admitted with stroke- so we are working on optimizing his condition. No acute issues overnight No chest pain, no palpitations no new weakness, numbness continues to have dysarthria- and is becoming frustrated due to the dysarthria. Family History: Unchanged from Admission Social History: Unchanged from Admission Past Medical History: Unchanged from Admission Objective Active Medications: Acetaminophen (Tylenol Tab*) 650 mg PO Q4H PRN PRN Reason: MILD PAIN or TEMP > 100.4 Al Hydrox/Mg Hydrox/Simethicone (Maalox Plus*) 30 ml PO Q6H PRN PRN Reason: INDIGESTION Aspirin (Aspirin 81 Mg Chew Tab*) 81 mg PO DAILY [facility] Last Admin: 06/17/19 09:12 Dose: 81 mg Atorvastatin Calcium (Lipitor*) 80 mg PO DAILY [facility] Last Admin: 06/17/19 09:12 Dose: 80 mg Clopidogrel Bisulfate (Plavix Tab*) 75 mg PO DAILY [facility] Last Admin: 06/17/19 09:12 Dose: 75 mg Enoxaparin Sodium (Lovenox(*)) 40 mg SUBCUT Q24H [facility] Last Admin: 06/17/19 09:13 Dose: 40 mg Finasteride (Proscar Tab*) 5 mg PO DAILY [facility] Last Admin: 06/17/19 09:12 Dose: 5 mg Hydralazine HCl (Apresoline Iv*) 10 mg IV SLOW PU Q6H PRN PRN Reason: SBP >180 Last Admin: 06/15/19 02:05 Dose: 10 mg Metoprolol Tartrate (Lopressor Tab*) 50 mg PO BID [facility] Ondansetron HCl (Zofran Inj*) 4 mg IV Q4H PRN PRN Reason: NAUSEA/VOMITING Pantoprazole Sodium (Protonix Tab*) 40 mg PO DAILY [facility] Last Admin: 06/17/19 09:12 Dose: 40 mg Senna (Senokot 8.6 Mg Tab*) 1 tab PO BID PRN PRN Reason: CONSTIPATION Vital Signs - 8 hr 06/17/19 06/17/19 06/17/19 03:15 07:15 08:00 Temperature 97.9 F 97.1 F Pulse Rate 102 53 Respiratory 16 16 20 Rate Blood Pressure 155/90 151/89 (mmHg) O2 Sat by Pulse 94 99 Oximetry 06/17/19 09:25 Temperature Pulse Rate 98 Respiratory Rate Blood Pressure (mmHg) O2 Sat by Pulse Oximetry Oxygen Devices in Use Now: None Appearance: Elderly obese male. sitting on bed, not in distress Respiratory: Symmetrical Chest Expansion and Respiratory Effort, Clear to Auscultation Cardiovascular: - - irregularly irregular, tachycardia. no chest wall tendneress. no lower extremity edema. Abdominal: NL Sounds; No Tenderness; No Distention, No Hepatosplenomegaly Extremities: No Edema Neurological: Alert and Oriented x 3, NL Muscle Strength and Tone, - - has dysarthria, slurred speech, tongue midline, no facial droop, no nystagmus. Result Diagrams: 06/14/19 15:37 06/15/19 06:13 Assess/Plan/Problems-Billing Assessment: This is a 69 year old man with history of afib on eliquis and multiple CVAs presented to the ED on 06/15 from [facility] where he was unable to order form the menu, and is found to have an acute CVA - Patient Problems (1) CVA (cerebral vascular accident) Current Visit: No Status: Acute Code(s): I63.9 - CEREBRAL INFARCTION, UNSPECIFIED SNOMED Code(s): 457006546 Comment: MRI confirmed acute CVA History of afib on anticoagulation, but family reported inconsistent adherence with medications TTE showed no PFO and no thrombus (but notably worse ef) Neurology is following; plavix added yesterday per Dr. Eduardo - continue aspirin, plavix. Eliquis was held due to high risk of hemorrhagic conversion- needs CT around and then follow up with neurology in regardings to anticoagulation Continue statin Anticoagulation on hold given risk of bleed Will need speech therapy, PT, OT (2) Acute systolic (congestive) heart failure Current Visit: Yes Status: Acute Code(s): I50.21 - ACUTE SYSTOLIC ( CONGESTIVE) HEART FAILURE SNOMED Code(s): 754660839 Comment: unable to maximize medical management at this point due to HTN needed for acute CVA may be tachycardia-mediated, seen by diesel locomotive engineer- recommend ischemic work up with nuclear stress test, but the timing of the test would be in near future- at this point he cannot get anticoagulation due to acute CVA, additionally we cannot get his BP down due to acute CVA. (3) Afib Current Visit: No Status: Acute Code(s): I48.91 - UNSPECIFIED ATRIAL FIBRILLATION SNOMED Code(s): 10225684 Comment: required a cardizem drip at admission for RVR; DC'ed yesterday. increase metoprolol to 50mg BID. d/c oral cardizem monitor HR, if need be start anticoagualtion held due to acute CVA and deemed high risk for a hemorrhagic conversion.
[2019-06-17] MEDS: Metoprolol Tartrate TAB* 50 mg PO SCH (20:02)
--- NOTE | 2019-06-17 20:57 | PN ---
NEUROLOGY PROGRESS NOTE: DATE OF SERVICE: 06/17/19 FOLLOWING PHYSICIAN: Dr. Wilhelm. SUBJECTIVE: The patient is doing well. He was having breakfast this morning. He had trouble with word finding difficulty, repetition, naming, and writing. He denied any headaches. The family is concerned about the patient's memory that seems to have deteriorated over the past 6 months. The spouse stated that he may have had hematuria while on Eliquis. MEDICATIONS: 1. Aspirin 81 mg daily. 2. Atorvastatin 80 mg daily. 3. Plavix 75 mg daily. 4. Enoxaparin 40 mg subcutaneous every 24 hours. 5. Finasteride 5 mg p.o. daily. 6. Hydralazine 10 mg IV slow push. 7. Metoprolol 50 mg p.o. b.i.d. 8 Pantoprazole 40 mg p.o. daily. 9. Senna 1 tablet p.o. b.i.d. p.r.n. I personally reviewed the MRI, which showed a [id number] acute focal infarction involving the left frontal lobe. Stable chronic findings also described similar to the August 2017 MRI of the brain. He had a transthoracic echo on 06/15/19 that showed an ejection fraction of 30% , left atrium is moderately dilated. It is important to note that the patient stated that he was compliant with Eliquis but someone took him off Eliquis approximately a week before he presented to the hospital. This history is unclear and further evaluation by his PCP is recommended. Further information gathered by his PCP is recommended. PHYSICAL EXAMINATION: Vital Signs: Temperature of 97.6, heart rate of 93, respiratory rate of 18, blood pressure 138/84. Reviewing the hospitalization vitals, the patient's systolic blood pressure was in the 200s initially when he presented to the hospital as well as when he was in the hospital. General: Ill - appearing man, in no acute distress. Head is atraumatic and normocephalic. Eyes: Conjunctivae/corneas are clear. Neck is supple and symmetrical with no carotid bruits. His heart rhythm is irregular. Pupils are equal, round, and reactive to light. Extraocular muscles are intact. The patient has moderate aphasia. He also has dysarthria. He is able to move all 4 extremities. Coordination: Dysmetria on the right. Intact, normal on the left finger-to- nose. Gait was not assessed. ASSESSMENT AND RECOMMENDATION: Mr. Shaan Valentino is a 69-year-old man with reported history of atrial fibrillation, it is unclear if he was on anticoagulation therapy or not before coming to the hospital but there were reports that the patient was taken off anticoagulation therapy, who presented with sudden onset aphasia. He was found to have an acute left MCA vascular territory ischemic infarction. He was not a candidate for IV TPA or mechanical thrombectomy. He is currently on dual antiplatelet therapy as anticoagulation therapy may increase his risk of hemorrhagic conversion within the first [address] Eduardo had recommended obtaining a CT of the head to be completed 7-10 days after the stroke. If there is no evidence of any hemorrhage , the patient should be back on Eliquis. One of the main concerns here is that the patient has had cognitive decline over the past six months. He has extensive white matter disease on MRI raising his risk for possible vascular dementia. Further evaluation as an outpatient is recommended. We will setup a followup appointment with our team in 1 to 2 weeks. He may need a CT scan done before he is seen in our clinic since he needs to be restarted on anticoagulation therapy. Please consult with the the patient's primary care doctor to see exactly why anticoagulation was discontinued. The family reports that the patient may have had hematuria while on Eliquis. The patient will not need dual antiplatelet therapy if he is going to be restarted back on Eliquis. Continue atorvastatin 80 mg nightly. 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 Discussed stroke care with the patient and his spouse. Continue neuro checks as recommended per the protocol. Keep his systolic blood pressure between 120 to less than 160. [id number]/[facility] #: [id number] ANGELIKA
[2019-06-18 06:09] LABS: BUN/Creatinine Ratio 10.2 (8-20); Calcium 8.9 mg/dL (8.6-10.3); EGFR African American 67.8 (>60); EGFR Non-African American 56.1 (>60); Magnesium 1.9 mg/dL (1.9-2.7); Potassium 3.6 mmol/L (3.5-5.0)
[2019-06-18] MEDS: Pantoprazole TAB * 40 MG TAB PO SCH (08:19)
[2019-06-18] MEDS: Clopidogrel TAB* 75 MG PO SCH (08:19)
[2019-06-18] MEDS: Aspirin 81 mg CHEW TAB* 81 MG TAB.CHEW PO SCH (08:19)
[2019-06-18] MEDS: Enoxaparin(*) 40 MG/0.4 ML SYR SUBCUT SCH (08:19)
[2019-06-18] MEDS: Atorvastatin* 80 MG TAB PO SCH (08:19)
[2019-06-18] MEDS: Metoprolol Tartrate TAB* 50 mg PO SCH ×2 (08:19→20:52)
[2019-06-18] MEDS: Finasteride TAB* 5 MG PO SCH (08:19)
[2019-06-18] MEDS ORDERED: Lisinopril TAB* 5 MG PO SCH (09:00)
[2019-06-18] MEDS ORDERED: Lisinopril TAB* 5 MG PO ONE (09:52)
--- NOTE | 2019-06-18 10:04 | PN ---
Subjective Date of Service: 06/18/19 Interval History: No acute issues overnight. This morning- had few pauses on telemetry, after which the HR went back to the 90's. No chest pain, no palpitations. Family History: Unchanged from Admission Social History: Unchanged from Admission Past Medical History: Unchanged from Admission Objective Active Medications: Acetaminophen (Tylenol Tab*) 650 mg PO Q4H PRN PRN Reason: MILD PAIN or TEMP > 100.4 Al Hydrox/Mg Hydrox/Simethicone (Maalox Plus*) 30 ml PO Q6H PRN PRN Reason: INDIGESTION Aspirin (Aspirin 81 Mg Chew Tab*) 81 mg PO DAILY [facility] Last Admin: 06/18/19 08:19 Dose: 81 mg Atorvastatin Calcium (Lipitor*) 80 mg PO DAILY [facility] Last Admin: 06/18/19 08:19 Dose: 80 mg Clopidogrel Bisulfate (Plavix Tab*) 75 mg PO DAILY [facility] Last Admin: 06/18/19 08:19 Dose: 75 mg Enoxaparin Sodium (Lovenox(*)) 40 mg SUBCUT Q24H [facility] Last Admin: 06/18/19 08:19 Dose: 40 mg Finasteride (Proscar Tab*) 5 mg PO DAILY [facility] Last Admin: 06/18/19 08:19 Dose: 5 mg Hydralazine HCl (Apresoline Iv*) 10 mg IV SLOW PU Q6H PRN PRN Reason: SBP >180 Last Admin: 06/15/19 02:05 Dose: 10 mg Lisinopril (Prinivil Tab*) 10 mg PO DAILY [facility] Metoprolol Tartrate (Lopressor Tab*) 50 mg PO BID [facility] Last Admin: 06/18/19 08:19 Dose: 50 mg Ondansetron HCl (Zofran Inj*) 4 mg IV Q4H PRN PRN Reason: NAUSEA/VOMITING Pantoprazole Sodium (Protonix Tab*) 40 mg PO DAILY [facility] Last Admin: 06/18/19 08:19 Dose: 40 mg Senna (Senokot 8.6 Mg Tab*) 1 tab PO BID PRN PRN Reason: CONSTIPATION Vital Signs - 8 hr 06/18/19 06/18/19 06/18/19 03:15 07:25 08:00 Temperature 97.7 F 97.4 F Pulse Rate 94 94 Respiratory 17 20 20 Rate Blood Pressure 149/98 147/85 (mmHg) O2 Sat by Pulse 98 96 96 Oximetry Oxygen Devices in Use Now: None Appearance: Elderly male, in no distress. Eyes: PERRLA Ears/Nose/Mouth/Throat: Mucous Membranes Moist Respiratory: Symmetrical Chest Expansion and Respiratory Effort, Clear to Auscultation Cardiovascular: - - Irregularly irregular. no murmurs. Abdominal: NL Sounds; No Tenderness; No Distention, No Hepatosplenomegaly Extremities: No Edema Neurological: Alert and Oriented x 3, - - slurred speech noted. Result Diagrams: 06/14/19 15:37 06/18/19 05:41 Assess/Plan/Problems-Billing Assessment: This is a 69 year old man with history of afib on eliquis and multiple CVAs presented to the ED on 06/[address] [facility] ([place], [place]) where he was unable to order form the menu, and is found to have an acute CVA - Patient Problems (1) CVA (cerebral vascular accident) Current Visit: No Status: Acute Code(s): I63.9 - CEREBRAL INFARCTION, UNSPECIFIED SNOMED Code(s): 801100266 Comment: MRI confirmed acute CVA History of afib on anticoagulation, but family reported inconsistent adherence with medications TTE showed no PFO and no thrombus (but notably worse ef) Neurology is following; plavix added yesterday per Dr. Eduardo - continue aspirin, plavix. Eliquis was held due to high risk of hemorrhagic conversion- needs CT around . if CT head is negative for hemorrhage then start eliquis and stop asa, plavix. Continue statin Anticoagulation on hold given risk of bleed Will need speech therapy, PT, OT (2) Acute systolic (congestive) heart failure Current Visit: Yes Status: Acute Code(s): I50.21 - ACUTE SYSTOLIC ( CONGESTIVE) HEART FAILURE SNOMED Code(s): 191577107 Comment: EF is 30%. RHETT started today. continue metoprolol 50mg BID- due to pauses seen on tele will not increase the dose, seen by coat room attendant- recommend ischemic work up with nuclear stress test, but the timing of the test would be in near future- at this point he cannot get anticoagulation due to acute CVA, (3) Afib Current Visit: No Status: Acute Code(s): I48.91 - UNSPECIFIED ATRIAL FIBRILLATION SNOMED Code(s): 72740238 Comment: required a cardizem drip at admission for RVR; DC'ed yesterday. metoprolol to 50mg BID. d/c oral cardizem monitor HR, anticoagualtion held due to acute CVA and deemed high risk for a hemorrhagic conversion. (4) DVT prophylaxis Current Visit: No Status: Acute Code(s): PGF4813 - SNOMED Code(s): 995872925 Comment: Marlon Cast
--- NOTE | 2019-06-18 10:38 | ECHO ---
*[facility]* [place] [address] Fax #: [phone] Limited Transthoracic Echocardiogram Patient: Shaan Valentino : 1950 Study Date: 06/18/2019 Age: 69 Gender: M HR: 90 bpm Height: 61 in /155 cm BSA: 2.09 m^2 Weight: 211.2 lb /96 kg BMI: 40 kg/m^2 *Card Doffer: Rebecca Escobar [facility] *Referring Physician: * Andrey Avila MD *Reading Physician: * Andrey Avila MD Indications: Cardiomyopathy. History: Atrial fibrillation. Cerebrovascular accident. Transient ischemic attack. Risk factors: Former tobacco use. Hypertension. Dyslipidemia. Conclusions Summary: - Left ventricle: Systolic function is moderately to severely reduced. The estimated ejection fraction is 25-30%. Systolic function is similar to the previous study with perhaps slight interval imrpovement when compared visually. Diffuse hypokinesis. - Regional wall motion abnormality: Severe hypokinesis to Akinesis of the entire inferior and mid inferolateral myocardium. The anterolateral segments are slightly less hypokinetic than the majority of the segments. - Right ventricle: Systolic function is mildly reduced. Study data: Transthoracic echocardiogram, limited study. Procedure: Transthoracic echocardiography was performed. Image quality was good. Location: Bedside. Patient status: Inpatient. Patient room number: 450 01. Rhythm: Normal sinus rhythm. Findings Left ventricle: The cavity size is normal. Systolic function is moderately to severely reduced. The estimated ejection fraction is 25-30%. Systolic function is similar to the previous study with perhaps slight interval imrpovement when compared visually. Diffuse hypokinesis. Regional wall motion abnormalities: Severe hypokinesis to Akinesis of the entire inferior and mid inferolateral myocardium. The anterolateral segments are slightly less hypokinetic than the majority of the segments. Right ventricle: The cavity size is normal. Wall thickness is mildly increased. Systolic function is mildly reduced. Pericardium: A trace pericardial effusion is identified. Measurements Right ventricle Value Ref AW thickness, ED (H) 0.6 cm 0.1 - 0.5 Legend: (L) and (H) sandra values outside specified reference range. Prepared and electronically signed by Andrey Avila MD 06/18/2019 10:17
--- NOTE | 2019-06-18 15:24 | PN ---
Subjective Date of Service: 06/18/19 Length of Stay: 4 Days Neurology is following for stroke. Interval History: Mr. Valentino's speech and word finding is slightly better today. He slept well overnight. He is asking if he can be discharged. He denied any new weakness or paresthesia. Labs, imaging, and other diagnostic studies: - Head CTA: Atheromatous disease. There is noncalcified potentially unstable plaque of the right carotid bifurcation. There is no ICA stenosis. Bilateral pleural effusion seen. - MRI brain without contrast- acute MCA vascular territory stroke. - TTE on 06/15/2019: EF 30%, left atrium is moderately dilated. Cholesterol: 176 LDL: 124 TSH: 0.67 Review of Systems: Denied CP, SOB, or palpitations. Family History: Unchanged from Admission Social History: Unchanged from Admission Past Medical History: Unchanged from Admission Objective Active Medications: Acetaminophen (Tylenol Tab*) 650 mg PO Q4H PRN PRN Reason: MILD PAIN or TEMP > 100.4 Al Hydrox/Mg Hydrox/Simethicone (Maalox Plus*) 30 ml PO Q6H PRN PRN Reason: INDIGESTION Aspirin (Aspirin 81 Mg Chew Tab*) 81 mg PO DAILY [facility] Last Admin: 06/18/19 08:19 Dose: 81 mg Atorvastatin Calcium (Lipitor*) 80 mg PO DAILY [facility] Last Admin: 06/18/19 08:19 Dose: 80 mg Clopidogrel Bisulfate (Plavix Tab*) 75 mg PO DAILY [facility] Last Admin: 06/18/19 08:19 Dose: 75 mg Enoxaparin Sodium (Lovenox(*)) 40 mg SUBCUT Q24H [facility] Last Admin: 06/18/19 08:19 Dose: 40 mg Finasteride (Proscar Tab*) 5 mg PO DAILY [facility] Last Admin: 06/18/19 08:19 Dose: 5 mg Hydralazine HCl (Apresoline Iv*) 10 mg IV SLOW PU Q6H PRN PRN Reason: SBP >180 Last Admin: 06/15/19 02:05 Dose: 10 mg Lisinopril (Prinivil Tab*) 2.5 mg PO DAILY [facility] Metoprolol Tartrate (Lopressor Tab*) 50 mg PO BID [facility] Last Admin: 06/18/19 08:19 Dose: 50 mg Ondansetron HCl (Zofran Inj*) 4 mg IV Q4H PRN PRN Reason: NAUSEA/VOMITING Pantoprazole Sodium (Protonix Tab*) 40 mg PO DAILY [facility] Last Admin: 06/18/19 08:19 Dose: 40 mg Senna (Senokot 8.6 Mg Tab*) 1 tab PO BID PRN PRN Reason: CONSTIPATION Vital Signs 06/17/19 06/17/19 06/17/19 15:15 19:15 20:00 Temperature 97.6 F 98.4 F Pulse Rate 93 93 Respiratory 18 17 17 Rate Blood Pressure 138/84 155/95 (mmHg) O2 Sat by Pulse 97 99 99 Oximetry 06/17/19 06/18/19 06/18/19 23:15 03:15 07:25 Temperature 97.4 F 97.7 F 97.4 F Pulse Rate 84 94 94 Respiratory 17 17 20 Rate Blood Pressure 154/96 149/98 147/85 (mmHg) O2 Sat by Pulse 97 98 96 Oximetry 06/18/19 06/18/19 08:00 11:31 Temperature 97.4 F Pulse Rate 97 Respiratory 20 16 Rate Blood Pressure 123/70 (mmHg) O2 Sat by Pulse 96 96 Oximetry Intake and Output Last 24 Hours 06/16/19 06/17/19 06/18/19 06/19/19 06:59 06:59 06:59 06:59 Intake Total 333 688 2475 120 Output Total 350 1150 Balance -243 -310 1280 120 Weight 210 lb 6.4 oz 210 lb 6.4 oz 212 lb 1.6 oz Intake: IV Fluids 107 Cardizem 107 Oral 0 840 1280 120 Output: Urine 350 1150 Other: Estimated Void Medium # Voids 0 Oxygen Devices in Use Now: None Neurology Exam: General: Well nourished, well developed, and in no acute distress HEENT: Normocephelic/atraumatic, sclera anicteric, mucous membranes moist Neck: Supple Extremities: No clubbing, cyanosis, or edema Neurological Findings: Awake, alert, and oriented to person, place, and time. Speech: moderate expressive aphasia. Cranial Nerve: PERRL, EOM intact, VFF, right facial droop. Motor: s/s throughout, proximal and distal extremities x4 tone/bulk normal Sensation: intact to LT/PP bilaterally upper and lower extremities Deep Tendon Reflex: 2+ symmetric in the upper/lower extremities, Babinski - down going Finger to nose, rapid alternating movements intact without tremor, no dysdiadochokinesia Gait: deferred Result Diagrams: 06/14/19 15:37 06/18/19 05:41 Assessment/Plan Mr. 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 He was not a candidate because he may have taken an Eliquis that morning of the stroke. The patient and spouse are poor historians. The spouse stated the patient takes all his medications at once but not sure if Eliquis is one of the medications. The patient is now aphasic and is unable to provide detail history regarding Eliquis use. 1. Acute left MCA vascular territory ischemic stroke. NIHSS today is 5 for aphasia, dysarthria, and right facial droop. 2. Worsening LV EF (systolic Heart failure) 3. Hypertensive emergency 4. Remote history of stroke 5. Extensive, severe, white matter small vessel ischemic changes most likely contributing to the patient's cognitive slowing. He is at risk for developing vascular dementia. Recommendations: - Repeat a CT head without contrast on 06/20/2019. If negative for stroke, resume Eliquis 5 mg twice daily. Please discontinue the Plavix but keep him on aspirin as it may be needed from the cardiovascular standpoint and his history of CAD. - Continue atorvastatin 80 mg nightly - Agree with aggressive BP management at this time. BP GOAL: normotensive. - He will need STR or acute rehabilitation as per PT. Agree with their recommendation - Stroke education completed. - Please wait for at least 30 days for any non-emergent cardiovascular procedures. If an emergent cardiac cauterization is needed, please discuss risk , benefit, and alternative therapy with family. - Follow-up with neurology in 3-4 weeks. I will sign off but please contact me for any questions or concerns.
[2019-06-19 05:52] LABS: BUN/Creatinine Ratio 9.5 (8-20); Calcium 9.2 mg/dL (8.6-10.3); EGFR African American 62.2 (>60); EGFR Non-African American 51.4 (>60); Potassium 4.2 mmol/L (3.5-5.0)
[2019-06-19] MEDS: Metoprolol Tartrate TAB* 50 mg PO SCH ×2 (08:54→21:34)
[2019-06-19] MEDS: Atorvastatin* 80 MG TAB PO SCH (08:54)
[2019-06-19] MEDS: Finasteride TAB* 5 MG PO SCH (08:55)
[2019-06-19] MEDS: Pantoprazole TAB * 40 MG TAB PO SCH (08:55)
[2019-06-19] MEDS: Cyanocobalamin TAB* 500 MCG PO SCH (08:55)
[2019-06-19] MEDS: Clopidogrel TAB* 75 MG PO SCH (08:55)
[2019-06-19] MEDS: Aspirin 81 mg CHEW TAB* 81 MG TAB.CHEW PO SCH (08:55)
[2019-06-19] MEDS ORDERED: Lisinopril TAB* 5 MG PO SCH ×2 (09:00)
[2019-06-19] MEDS: Enoxaparin(*) 40 MG/0.4 ML SYR SUBCUT SCH (09:02)
[2019-06-19] MEDS ORDERED: Cyanocobalamin INJ * 1,000 MCG/ML VIAL 1 ML VIAL IM ONE (09:09)
[2019-06-19] MEDS ORDERED: Lisinopril TAB* 5 MG PO ONE (10:26)
--- NOTE | 2019-06-19 11:44 | PN ---
Subjective Date of Service: 06/19/19 Interval History: No acute issues overnight No chest pain No palpitations No headaches Continues to have trouble speaking, Family History: Unchanged from Admission Social History: Unchanged from Admission Past Medical History: Unchanged from Admission Objective Active Medications: Acetaminophen (Tylenol Tab*) 650 mg PO Q4H PRN PRN Reason: MILD PAIN or TEMP > 100.4 Last Admin: 06/18/19 20:52 Dose: 650 mg Al Hydrox/Mg Hydrox/Simethicone (Maalox Plus*) 30 ml PO Q6H PRN PRN Reason: INDIGESTION Aspirin (Aspirin 81 Mg Chew Tab*) 81 mg PO DAILY [facility] Last Admin: 06/19/19 08:55 Dose: 81 mg Atorvastatin Calcium (Lipitor*) 80 mg PO DAILY [facility] Last Admin: 06/19/19 08:54 Dose: 80 mg Clopidogrel Bisulfate (Plavix Tab*) 75 mg PO DAILY [facility] Last Admin: 06/19/19 08:55 Dose: 75 mg Cyanocobalamin (Vitamin B12 Tab*) 1,000 mcg PO DAILY [facility] Last Admin: 06/19/19 08:55 Dose: 1,000 mcg Enoxaparin Sodium (Lovenox(*)) 40 mg SUBCUT Q24H [facility] Last Admin: 06/19/19 09:02 Dose: 40 mg Finasteride (Proscar Tab*) 5 mg PO DAILY [facility] Last Admin: 06/19/19 08:55 Dose: 5 mg Hydralazine HCl (Apresoline Iv*) 10 mg IV SLOW PU Q6H PRN PRN Reason: SBP >180 Last Admin: 06/15/19 02:05 Dose: 10 mg Lisinopril (Prinivil Tab*) 5 mg PO DAILY [facility] Metoprolol Tartrate (Lopressor Tab*) 50 mg PO BID [facility] Last Admin: 06/19/19 08:54 Dose: 50 mg Ondansetron HCl (Zofran Inj*) 4 mg IV Q4H PRN PRN Reason: NAUSEA/VOMITING Pantoprazole Sodium (Protonix Tab*) 40 mg PO DAILY [facility] Last Admin: 06/19/19 08:55 Dose: 40 mg Senna (Senokot 8.6 Mg Tab*) 1 tab PO BID PRN PRN Reason: CONSTIPATION Last Admin: 06/18/19 20:52 Dose: 1 tab Vital Signs - 8 hr 06/19/19 06/19/19 07:15 07:55 Temperature 98.4 F Pulse Rate 82 Respiratory 20 18 Rate Blood Pressure 153/74 (mmHg) O2 Sat by Pulse 98 Oximetry Oxygen Devices in Use Now: None Appearance: He is lying in bed, not in distress Eyes: PERRLA Ears/Nose/Mouth/Throat: Mucous Membranes Moist Respiratory: Symmetrical Chest Expansion and Respiratory Effort, Clear to Auscultation Cardiovascular: No Edema, - - irregularly irregular, no murmurs. Abdominal: NL Sounds; No Tenderness; No Distention, No Hepatosplenomegaly Extremities: No Edema Neurological: Alert and Oriented x 3, - - slurred speech, tongue is midline, no facial droop, motor 5/5 all four extremities Result Diagrams: 06/14/19 15:37 06/19/19 05:29 Assess/Plan/Problems-Billing Assessment: This is a 69 year old man with history of afib on eliquis and multiple CVAs presented to the ED on 06/15 from [facility] where he was unable to order form the menu, and is found to have an acute CVA - Patient Problems (1) CVA (cerebral vascular accident) Current Visit: No Status: Acute Code(s): I63.9 - CEREBRAL INFARCTION, UNSPECIFIED SNOMED Code(s): 922249975 Comment: MRI confirmed acute CVA History of afib on anticoagulation, but family reported inconsistent adherence with medications TTE showed no PFO and no thrombus (but notably worse ef) Neurology is following; plavix added yesterday per Dr. Eduardo - continue aspirin, plavix. Eliquis was held due to high risk of hemorrhagic conversion- needs CT around . if CT head is negative for hemorrhage then start eliquis and stop asa, plavix. Continue statin Anticoagulation on hold given risk of bleed (2) Acute systolic (congestive) heart failure Current Visit: Yes Status: Acute Code(s): I50.21 - ACUTE SYSTOLIC ( CONGESTIVE) HEART FAILURE SNOMED Code(s): 255430944 Comment: EF is 30%. RHETT started lisinopril dose increased today. continue metoprolol 50mg BID- due to pauses seen on tele will not increase the dose, seen by documentation nurse- recommend ischemic work up with nuclear stress test, but the timing of the test would be in near future- at this point he cannot get anticoagulation due to acute CVA, (3) Afib Current Visit: No Status: Acute Code(s): I48.91 - UNSPECIFIED ATRIAL FIBRILLATION SNOMED Code(s): 01607799 Comment: required a cardizem drip at admission for RVR; DC'ed yesterday. metoprolol to 50mg BID- at this point being cautious as he had sinus pauses on telemetry. oral cardizem has been discontinued monitor HR, anticoagualtion held due to acute CVA and deemed high risk for a hemorrhagic conversion. (4) DVT prophylaxis Current Visit: No Status: Acute Code(s): POD7651 - SNOMED Code(s): 182949721 Comment: Lovenox subQ Status and Disposition: working with case management for safe discharge plan compliance is an issue here. needs CT scan next week, and that will help determine if we can restart anticoagulation and stop the antiplatlet needs neurology follow up after CT needs cardiology appointment for outpatient stress test.
[2019-06-20] MEDS: Aspirin 81 mg CHEW TAB* 81 MG TAB.CHEW PO SCH (07:58)
[2019-06-20] MEDS: Metoprolol Tartrate TAB* 50 mg PO SCH (07:58)
[2019-06-20] MEDS: Atorvastatin* 80 MG TAB PO SCH (07:58)
[2019-06-20] MEDS: Pantoprazole TAB * 40 MG TAB PO SCH (07:59)
[2019-06-20] MEDS: Cyanocobalamin TAB* 500 MCG PO SCH (07:59)
[2019-06-20] MEDS: Enoxaparin(*) 40 MG/0.4 ML SYR SUBCUT SCH (07:59)
[2019-06-20] MEDS: Clopidogrel TAB* 75 MG PO SCH (07:59)
[2019-06-20] MEDS: Finasteride TAB* 5 MG PO SCH (07:59)
[2019-06-20] MEDS ORDERED: Lisinopril TAB* 5 MG PO SCH (09:00)
[2019-06-20] MEDS ORDERED: Metoprolol Tartrate TAB* 25 MG PO ONE (13:42)
[2019-06-20 14:13] LABS: Hematocrit 48 % (42-52); Hemoglobin 16.2 g/dL (14.0-18.0); Mean Corpuscular HGB Conc 34 g/dL (31-36); Mean Corpuscular Hemoglobin 30 pg (27-31); Mean Corpuscular Volume 89 fL (80-94); Mean Platelet Volume 9.3 fL (7.4-10.4); Platelet Count 286 10^3/uL (150-450); Red Blood Count 5.37 10^6 /uL (4.18-5.48); Red Cell Distribution Width 15 % (10-15); White Blood Count 7.4 10^3/uL (3.5-10.8)
[2019-06-20] MEDS ORDERED: Magnesium Sulfate 2 GM IV* 2 GM/50 ML BAG IVPB ONE (15:04)
[2019-06-20] MEDS ORDERED: Magnesium Oxide TAB* 400 MG PO ONE (16:14)
[2019-06-20 17:18] VITALS: BP 129/69
--- NOTE | 2019-06-20 22:17 | DS ---
CC: Dr. Damon Mcdonnell; Dr. Drummond; Dr. Eduardo; Dr. Dominguez Low; Heri Santana, ALONZO DISCHARGE SUMMARY: DATE OF ADMISSION: 06/14/19 DATE OF DISCHARGE: 06/20/19 PRIMARY CARE PROVIDER: Dr. Mcdonnell. CONSULTATIONS: Consultants throughout the hospital course included: 1. Dr. Kirill Eduardo, neurologist. 2. Dr. Andrey Avila, child support investigator. 3. Dr. Joss Drummond, neurologist. REASON FOR THE ADMISSION: Confusion, dysarthria, and aphasia. HOSPITAL COURSE: This is a 69-year-old male with past medical history of stroke with residual left-sided neglect and minimal dysarthria, atrial fibrillation, heart failure with reduced ejection fraction, PTSD, hypertension, who had presented to the emergency department because of confusion, dysarthria, and aphasia. The patient is on Eliquis at home, however, compliance is questionable. In the emergency room, the patient was seen and evaluated. The patient had a brain CT done, which showed no acute intracranial pathology, remote right frontal infarct with chronic small vessel ischemic changes were noted. Head CTA showed atheromatous disease. There is a noncalcified, potentially unstable plaque of the right carotid bifurcation. There is no internal carotid stenosis by NASCET criteria. There is no aneurysm, vascular malformation, occlusion or stenosis of the visualized intracranial circulation. Bilateral pleural effusions with pulmonary interstitial edema. Chest x-ray was done, which showed cardiomegaly with pulmonary interstitial edema. EKG showed atrial fibrillation with irregularly irregular rate consistent with atrial fibrillation. When the patient was seen and evaluated in the emergency room, it appeared that the patient continued to have dysarthria and aphasia and was also noted to have left visual field deficit. The case was discussed with [facility], who did not believe that the patient should get tPA. The patient's Eliquis was held and the patient was given aspirin 324 mg daily and started on 81 mg daily. The patient was placed n.p.o. until bedside swallow evaluation was done. The case was discussed with Dr. Eduardo, who evaluated the patient. The patient was not a candidate for tPA due to there was a possibility that the patient took Eliquis in the morning. The patient was seen by Dr. Eduardo who recommended to get an MRI scan. We would hold off on anticoagulation as the patient was noted to clearly have a large stroke, possibly partial left MCA stroke. He recommended to continue the patient on aspirin and add Plavix as well as Lipitor. Recommended to have liberal blood pressure goals. The patient had an MRI, which then revealed acute focal infarction involving the left frontal lobe. Additionally, the patient also had an echocardiogram done, which showed ejection fraction of 30% with mild diffuse hypokinesis. Regarding his stroke, PT/OT and Speech Pathology were involved in his care. The patient did not require any further physical therapy; however, did require some speech therapy. Referral was made for this as an outpatient. It was recommended by the neurologist to get a repeat CAT scan, so repeat CAT scan was done on 06/20/19, which did not show any hemorrhagic component. There was an evolving stroke. Based on this, we stop the aspirin and Plavix, and the patient will be restarted on his Eliquis starting tomorrow. Eliquis was being held due to a large stroke and risk of hemorrhagic conversion was high. The patient was also seen by child support investigator, Dr. Andrey Avila. The patient underwent an echocardiogram, which showed ejection fraction of 25% to 30% afterwards as well with hypokinesis. Unfortunately, due to the patient's acute stroke, he is at a high risk for hemorrhagic conversion as well new risk for stroke. At this point, a stress test would not be advisable, as we would not be able to acutely do intervention due to acute stroke. We recommended the patient follow up with the child support investigator as an outpatient in 2 to 3 months, and then decide on how to proceed further. Dr. Avila recommended controlling his blood pressure as well as controlling his heart rate, which will help his ejection fraction as well. It should be recommended that the patient should continue medical management for 2 to 3 months, get a repeat echocardiogram and decided if he is qualified for AICD. Throughout the hospital course, we adjusted the patient's blood pressure medication, which included adding lisinopril, we discontinued his Cardizem and started him on metoprolol. The patient was also referred for RU who deemed that he was not a candidate. The patient was seen by physical therapist as well as occupational therapist. Case management was also involved in his care. Additional findings: The patient's TSH was 0.67, and was found to have vitamin B12 deficiency 179. The patient received 1 dose of IM vitamin B12 and then started on oral supplements. Hemoglobin A1c was 5.6. LDL was 124. The patient did have episodes of PVC. PHYSICAL EXAMINATION: Blood pressure 129/59, oxygen saturation of 97% on room air, respiratory rate of 16, pulse of 87, temperature of 97.2 Fahrenheit. General: This is an elderly male, sitting on bed, in no acute distress. Pupils are equal, round, and reactive to light. Atraumatic, normocephalic. Left- sided hemineglect has been noted. Left upper extremity is 4/5, left lower extremity is 5/5, right lower extremity is 5/5. The patient has dysarthria with mild facial droop on the right side. There is no carotid bruit. Heart: Irregularly irregular. No murmurs, rubs or gallops. There is no chest wall tenderness. There is no lower extremity edema. Lungs: There is no tachypnea. No use of accessory muscles. Lungs are clear to auscultation. Abdomen: Bowel sounds are normoactive all 4 quadrants. Abdomen is soft, nontender, nondistended. He is awake, alert, and oriented x3. There is no lower extremity edema. He is following commands. DISCHARGE PLANNING: DISCHARGE CONDITION: Fair. DISCHARGE DISPOSITION: The patient will be discharged to home. DISCHARGE MEDICATIONS: Include: 1. Eliquis 5 mg every 12 hours starting tomorrow. 2. Lipitor 80 mg daily. 3. Vitamin B12 1000 mcg daily. 4. Proscar 5 mg daily. 5. Lisinopril 5 mg daily. 6. Lopressor 75 mg b.i.d. 7. Omeprazole 20 mg daily. VNA services were referred. Regarding discharge planning, I had an extensive conversation with his daughter , , as well as the patient regarding the importance of taking his medications, advised him to return to the emergency room should he develop new headaches, changes in his vision, or he develops any new neurological changes, which he includes weakness or numbness. I advised him to follow up with his appointment as scheduled on a regular basis to take his medications as prescribed. Discharge planning was also discussed with his daughter, who is agreeable to help out in management of his care. DISCHARGE FOLLOWUP: Includes the patient was referred to visiting nurses' service. Visiting nurses will call them to set up the time. Referred for physical therapy at [facility]. Appointment for speech therapy is scheduled for 06/30/19 at 11:30 a.m. The patient has an appointment with Heri Santana, nurse practitioner, at the neurology office at the [facility]. The appointment is scheduled for 07/07/19 at 9:30 a.m. The patient is to see Dr. Damon Mcdonnell, his primary care provider on 06/25/19 at 11:30 a.m. The patient is instructed for no driving until seen by a neurologist. The patient is to follow up with a child support investigator, Dr. Dominguez Low in 2 to 3 months. DISCHARGE DIAGNOSES: Include: 1. Acute left frontal stroke. 2. Atrial fibrillation. 3. Congestive heart failure with ejection fraction of 25% to 30%. 4. Essential hypertension. 5. Dyslipidemia. 6. History of stroke. The patient is at a high risk for readmission. Safe discharge planning was discussed with case management. Physical Therapy also saw the patient, the patient is independent with his ADLs. Visiting nurses have been referred. Approximately 60 minutes were sent with discharge planning, including face to face time with patient and the family discussing discharge planning and follow up and educating on stroke and heart disease, and congestive heart failure. [id number]/[facility] #: [id number] MTDD
== END 2019-06-20 17:05 | disposition home health service (06) | DRG 64 ==
LOC: ED 15:21 → MEDTELE 17:56
PROVIDERS: ADMIT Internal Medicine; ATTEND Internal Medicine
DX: I63.89 Other cerebral infarction (principal); I50.21 Acute systolic (congestive) heart failure; I69.354 Hemiplegia and hemiparesis following cerebral infarction affecting left non-dominant side; I16.1 Hypertensive emergency; I42.9 Cardiomyopathy, unspecified; R47.1 Dysarthria and anarthria; G83.24 Monoplegia of upper limb affecting left nondominant side; I48.91 Unspecified atrial fibrillation; I11.0 Hypertensive heart disease with heart failure; E78.5 Hyperlipidemia, unspecified; R47.01 Aphasia; R29.810 Facial weakness; F43.10 Post-traumatic stress disorder, unspecified; K21.9 Gastro-esophageal reflux disease without esophagitis; N40.0 Benign prostatic hyperplasia without lower urinary tract symptoms; N52.9 Male erectile dysfunction, unspecified; E66.9 Obesity, unspecified; Z68.39 Body mass index [BMI] 39.0-39.9, adult; Z79.01 Long term (current) use of anticoagulants; Z79.84 Long term (current) use of oral hypoglycemic drugs; Z79.899 Other long term (current) drug therapy; Z88.5 Allergy status to narcotic agent; Z88.2 Allergy status to sulfonamides; Z87.891 Personal history of nicotine dependence; I65.21 Occlusion and stenosis of right carotid artery; E53.8 Deficiency of other specified B group vitamins; Z91.14 Patient's other noncompliance with medication regimen
CPT/HCPCS: 36415; 70450; 70496; 70498; 70551; 71045; 80048; 80053; 80061; 81003; 82607; 83036; 83605; 83735; 83880; 84443; 84484; 85025; 85027; 85610; 85730; 93005; 93306; 93308; 96374; 96375; 99284; A9270-GY; C8929; G8978-GP-CK; G8979-GP-CI; G8987-GO-CL; G8988-GO-CI; J0360; J1650; J1940; J2997; J3420; J3490; Q9967

== ENCOUNTER 2019-07-21 14:43 | Emergency (ER) | payer MEDICARE, BC ==
--- NOTE | 2019-07-21 15:13 | ED ---
Complex/Multi-Sys Presentation - HPI Summary HPI Summary: 69 year old M arriving via ambulance complains of pain in his left fifth finger and abrasion on his nose bridge after collapsing while walking and falling in some mud on the road minutes prior to arrival. Unable to stand or ambulate after the fall. EMS had to help patient get up from the road. No headache, neck pain, chest pain, shortness of breath, back pain, abdominal pain, left wrist pain, left forearm pain, left upper arm pain. Pain rated 2/10 in severity. Symptoms aggravated by nothing. Symptoms alleviated by nothing. Medications reviewed. Allergies noted. PMHx reviewed. Hx hypertension. No hx DVT or PE. Denies alcohol use today. - History Of Current Complaint Chief Complaint: EDFall Time Seen by Provider: 07/21/19 15:06 Hx Obtained From: Patient Onset/Duration: Lasting Minutes, Still Present Timing: Constant Severity Currently: Mild - 2/10 Aggravating Factor(s): Nothing Alleviating Factor(s): Nothing Associated Signs And Symptoms: Positive: Other - NEG: headache, neck pain, chest pain, shortness of breath, back pain, abdominal pain, left wrist pain, left forearm pain, left upper arm pain - Allergies/Home Medications Allergies/Adverse Reactions: Allergies Allergy/AdvReac Type Severity Reaction Status Date / Time morphine Allergy Difficulty Verified 06/14/19 15:44 Breathing Sulfa (Sulfonamide Allergy Hives Verified 06/14/19 15:44 Antibiotics) Home Medications: Home Medications Apixaban* [Eliquis*] 5 mg PO DAILY 07/21/19 [History Confirmed 07/21/19] Lisinopril TAB* [Prinivil TAB*] 10 mg PO DAILY 07/21/19 [History Confirmed 07/21] Metoprolol Succinate XL TAB* [Toprol XL TAB*] 75 mg PO DAILY 07/21/19 [History Confirmed 07/21/19] dilTIAZem HCl [Diltiazem 24Hr ER (Cd)] 180 mg PO DAILY 07/21/19 [History Confirmed 07/21/19] PMH/Surg Hx/FS Hx/Imm Hx Endocrine/Hematology History: Denies: Hx Diabetes, Hx Sickle Cell Disease, Hx Thyroid Disease Cardiovascular History: Reports: Hx Hypertension, Other Cardiovascular Problems/ Disorders - HYPERCHOLESTEROLEMIA Denies: Hx Pacemaker/ICD Respiratory History: Denies: Hx Asthma, Hx Chronic Obstructive Pulmonary Disease (COPD), Other Respiratory Problems/Disorders GI History: Reports: Hx Gastroesophageal Reflux Disease - ON MED Denies: Hx Ulcer History: Denies: Other Problems/Disorders Musculoskeletal History: Reports: Hx Back Problems, Other Musculoskeletal History - carpal tunnel syndrom Sensory History: Reports: Hx Cataracts, Hx Contacts or Glasses, Hx Glaucoma Denies: Hx Hearing Aid Opthamlomology History: Reports: Hx Cataracts, Hx Contacts or Glasses, Hx Glaucoma Neurological History: Reports: Hx Transient Ischemic Attacks (TIA) Psychiatric History: Reports: Hx Post Traumatic Stress Disorder Denies: Hx Panic Disorder - Cancer History Hx Chemotherapy: No Hx Radiation Therapy: No - Surgical History Surgery Procedure, Year, and Place: T & A A CHILD; CATARACT; REMOVAL OF GROWTH ON BACK Hx Anesthesia Reactions: No Infectious Disease History: No Infectious Disease History: Reports: Hx Tuberculosis - tests positive but neg Denies: Hx Clostridium Difficile, Hx Hepatitis, Hx Human Immunodeficiency Virus (HIV), Hx of Known/Suspected MRSA, Hx Shingles, Hx Known/Suspected VRE, Hx Known/Suspected VRSA, History Other Infectious Disease, Traveled Outside the [place] in Last 30 Days - Family History Known Family History: Positive: Hypertension - Social History Alcohol Use: Occasionally Hx Substance Use: No Substance Use Type: Reports: None Hx Tobacco Use: Yes Smoking Status (MU): Former Smoker Type: Cigarettes Amount Used/How Often: 2-3 PPD X 36 YRS Length of Time of Smoking/Using Tobacco: Quit 2003 Review of Systems Negative: Chest Pain Negative: Shortness Of Breath Negative: Abdominal Pain Musculoskeletal: Negative - neck pain, back pain, left wrist pain, left forearm pain, left upper arm pain Positive: Other - left fifth finger pain Positive: Other - abrasion on nose bridge Negative: Headache All Other Systems Reviewed And Are Negative: Yes Physical Exam - Summary Physical Exam Summary: Constitutional: Well-developed, Well-nourished, Alert. (-) Distressed Skin: Warm, Dry, superficial abrasion on his nose, no alber tenderness HENT: Normocephalic; Atraumatic Eyes: Conjunctiva normal Neck: Musculoskeletal ROM normal neck. (-) JVD, (-) Stridor, (-) Tracheal deviation Cardio: Rhythm regular, rate normal, Heart sounds normal; Intact distal pulses; The pedal pulses are 2+ and symmetric. Radial pulses are 2+ and symmetric. (-) Murmur Pulmonary/Chest wall: Effort normal. (-) Respiratory distress, (-) Wheezes, (-) Rales Abd: Soft, (-) tenderness, (-) Distension, (-) Guarding, (-) Rebound Musculoskeletal: Pain over left PIP joints, no gross deformity of the small finger, Lymph: (-) Cervical adenopathy Neuro: Baseline dementia, no focal deficits Psych: Mood and affect Normal Triage Information Reviewed: Yes Vital Signs On Initial Exam: Initial Vitals Temp Pulse Resp BP Pulse Ox 97.4 F 61 20 132/83 97 07/21/19 14:55 07/21/19 14:55 07/21/19 14:55 07/21/19 14:55 07/21/19 14:55 Vital Signs Reviewed: Yes Procedures - Sedation Patient Received Moderate/Deep Sedation with Procedure: No Diagnostics - Vital Signs Vital Signs Temp Pulse Resp BP Pulse Ox 07/21/19 15:00 69 132/83 95 07/21/19 14:55 97.4 F 61 20 132/83 97 - Laboratory Lab Statement: Any lab studies that have been ordered have been reviewed, and results considered in the medical decision making process. - Radiology Left finger x-ray Radiology Interpretation Completed By: Radiologist Summary of Radiographic Findings: TRANSVERSE SLIGHTLY IMPACTED FRACTURE OF THE PROXIMAL PHALANX. ED physician has reviewed this report. - CT Brain CT Interpretation Completed By: Radiologist Summary of CT Findings: NO ACUTE INTRACRANIAL PATHOLOGY. CHRONIC SMALL VESSEL ISCHEMIC CHANGE. ED physician has reviewed this report. Complex Multi-Symp Course/Dx Course Of Treatment: 69 year old M arriving via ambulance complains of pain in his left fifth finger and abrasion on his nose bridge after collapsing while walking and falling in some mud on the road minutes prior to arrival. Unable to stand or ambulate after the fall. EMS had to help patient get up from the road. No headache, neck pain, chest pain, shortness of breath, back pain, abdominal pain, left wrist pain, left forearm pain, left upper arm pain. Pain rated 2/10 in severity. Symptoms aggravated by nothing. Symptoms alleviated by nothing. Medications reviewed. Allergies noted. PMHx reviewed. Hx hypertension. No hx DVT or PE. Denies alcohol use today. Upon exam, the patient has superficial abrasion on his nose, no alber tenderness, pain over left PIP joints, no gross deformity of the small finger, baseline dementia, no focal deficits. Left finger x-ray shows per radiologist: TRANSVERSE SLIGHTLY IMPACTED FRACTURE OF THE PROXIMAL PHALANX. CT Brain shows per radiologist: NO ACUTE INTRACRANIAL PATHOLOGY. CHRONIC SMALL VESSEL ISCHEMIC CHANGE. Patient will be discharged home with follow up from his primary care provider in 2-3 days and orthopedics. Patient was instructed to return to Emergency Department for new or worsening symptoms. Patient understands and is agreeable to this plan. Left little finger fracture splinted by nurse. Patient comfortable with discharge home with family. Has PCP for follow-up and was also given orthopedic referral for finger fracture. - Diagnoses Provider Diagnoses: Fall, Head injury, Finger fracture Discharge ED - Sign-Out/Discharge Documenting (check all that apply): Patient Departure - Discharge Plan Condition: Stable Disposition: HOME Patient Education Materials: Finger Fracture (ED), Head Injury (ED), Fall Prevention (ED) Referrals: Rachell Joya MD [Medical Doctor] - Damon Mcdonnell MD [Primary Care Provider] - 2 Days Additional Instructions: Follow up with your primary care provider in 2-3 days. Follow up with orthopedics. Return to the Emergency Department for new or worsening symptoms. - Billing Disposition and Condition Condition: STABLE Disposition: Home - Attestation Statements Document Initiated by Mira: Yes Documenting Scribe: Giulia Fuentes Provider For Whom Mira is Documenting (Include Credential): Best Grimes DO Scribe Attestation: Giulia Curran scribed for Best Grimes DO on 07/21/19 at 1718. Scribe Documentation Reviewed: Yes Provider Attestation: The documentation as recorded by the scribeGiulia accurately reflects the service I personally performed and the decisions made by me, Best Grimes DO Status of Scribjuainta Document: Viewed
[2019-07-21 17:09] VITALS: BP 124/78
== END 2019-07-21 17:07 | disposition home or self-care (01) ==
LOC: ED 14:43
DX: S09.90XA Unspecified injury of head, initial encounter (principal); S00.31XA Abrasion of nose, initial encounter; S62.647A Nondisplaced fracture of proximal phalanx of left little finger, initial encounter for closed fracture; W18.30XA Fall on same level, unspecified, initial encounter; Y93.01 Activity, walking, marching and hiking; Y92.410 Unspecified street and highway as the place of occurrence of the external cause; M19.042 Primary osteoarthritis, left hand; I10 Essential (primary) hypertension; E78.00 Pure hypercholesterolemia, unspecified; K21.9 Gastro-esophageal reflux disease without esophagitis; Z79.01 Long term (current) use of anticoagulants; Z88.5 Allergy status to narcotic agent; Z88.2 Allergy status to sulfonamides; Z87.891 Personal history of nicotine dependence
CPT/HCPCS: 70450; 73140; 99283